=== PATIENT | female | born 1960 | race Hispanic/Latino ===

== ENCOUNTER 2018-07-12 16:15 | Inpatient (IN) | payer MEDICARE ==
[~2018-07-12] VITALS: Ht 162.6 cm; Wt 126.6 kg
[~2018-07-12 16:15] MED LIST: ALLOPURINOL100 MG PO; ASPIR 8181 MG PO; CALCIUM CARBON500 MG PO; CYMBALTA30 MG PO; DETROL LA4 MG PO; GABAPENTIN300 MG PO; HUMALOG100 UNIT/1 SC; HYDRALAZINE HCL25 MG PO; LANTUS100 UNITS/ SC; LEVOTHYROXINE88 MCG PO; SODIUM BICARBO650 MG PO; USTELL PO; VITAMIN D1000 UNIT PO; VYTORIN 10-401 EACH PO
--- NOTE | 2018-07-12 19:20 | NUR ---
PT IS IN THE UNIT WITH C/O L.LEG CELLULITIS.DIRECT ADMISSION FROM 'S OFFICE.ASSESSMENT DONE.NO RESP.DISTRESS.WALK WITH CANE.NO PAIN VOICED. H/O AMPUTATED R FOOT DIGITS.ULCER NOTED @ BOTTOM OF R.FOOT.GANGRENE PRESENT @ L.FOOT.NEW IV STATRED @ R.FARM #20G.PT IS BEING ON DIALYSIS.NOTIFIED TO MD ALONZO FARAH.RECEIVED NEW ORDERS.NOTIFIED TO ALL THE CONSULTS.CALL PLACED TO [facility] .KEEP MONITOR THE PT.
--- OUTSIDE RECORDS SUMMARY | 2018-07-12 19:31 | XMS REPORT | Summary of Care ---
Author Author HEATHER Rudolph, JUANA Organization Unknown Address Unknown Phone Unavailable Care Team Providers Care Terrazzo Installer Name Role Phone JUANA ROMERO M.D. Unavailable Unavailable BRITTNEY SANCHEZ MD Unavailable Unavailable Unavailable Unavailable Functional Status Name Dates Details Functional status health issues are not documented Status: Name Dates Details Cognitive status health issues are not documented Status: Problems Name Dates Details Limb pain (729.5, M79.609) Status: Active Acute cervical radiculopathy (723.4, M54.12) Status: Active AVF (arteriovenous fistula) (447.0, I77.0) Status: Active End-stage renal disease (585.6, N18.6) Status: Active Medications Name Dates Details Triamcinolone Acetonide 0.1 % External Cream Active Methocarbamol 750 MG Oral Tablet * Refills: 0 Active TraMADol HCl - 50 MG Oral Tablet * Refills: 0 Active Cymbalta 30 MG Oral Capsule Delayed Release Particles * Refills: 0 Active Simvastatin 10 MG Oral Tablet * Refills: 0 Active Allopurinol 100 MG Oral Tablet * Refills: 0 Active Synthroid 88 MCG Oral Tablet * Refills: 0 Active Gabapentin 400 MG TABS * Refills: 0 Active Baby Aspirin 81 MG CHEW * Refills: 0 Active Lantus 100 UNIT/ML Subcutaneous Solution * Refills: 0 Active HumaLOG 100 UNIT/ML Subcutaneous Solution * Refills: 0 Active Allergies and Adverse Reactions Name Dates Details No Known Allergies (Allergy) Status: Active Procedures Procedure Dates Details Procedures not documented Immunization Name Dates Details Immunizations not documented Social History Name Dates Details Unknown if ever smoked Vital Signs Date Test Result Details [id number] BP Systolic 104 mm[Hg] Status: Comments: Location: RUE; Position: Supine BP Diastolic 64 mm[Hg] Status: Comments: Location: RUE; Position: Supine Height 64 in Status: Weight 262 lb Status: Body Mass Index Calculated 44.97 kg/m2 Status: Body Surface Area Calculated 2.19 m2 Status: Heart Rate 64 /min Status: [id number] BP Systolic 139 mm[Hg] Status: BP Diastolic 82 mm[Hg] Status: Height 64 in Status: Weight 266 lb Status: Body Mass Index Calculated 45.66 kg/m2 Status: Body Surface Area Calculated 2.21 m2 Status: Results Date Description Value Details [id number] Tobacco Use Screening Completed DONE Plan of Care Name Dates Details Planned Observations Planned Goals not documented Instructions Name Dates Details Instructions not documented Encounters Appointment; DR HEATHER GIL Encounter Diagnosis: Problem not documented On: 09-Aug-2017 12:30 Appointment; JUANA ROMERO M.D. Encounter Diagnosis: Problem not documented On: 09-Aug-2017 13:15 Appointment; JUANA ROMERO M.D. Encounter Diagnosis: Problem not documented On: 16-Aug-2017 8:45
--- OUTSIDE RECORDS SUMMARY | 2018-07-12 19:31 | XMS REPORT | Continuity of Care Document ---
Author Author [facility] Interface Address Unknown Phone Unavailable Problems Problem Status Onset Date Classification Date Reported Comments Source Diabetes with unspecified complication, type II or unspecified type, not stated as uncontrolled Active Problem 02/01/2014 Lynsey Light Atherosclerosis of [place] arteries of the extremities with ulceration Active Problem 02/01/2014 Lynsey Light Hypercholesterolemia Active Problem 02/01/2014 Lynsey Light Lower limb amputation, above knee Active Problem 02/01/2014 Lynsey Light Angina Active Problem 02/01/2014 Lynsey Light Carotid artherosclerosis w/o infarction Active Problem 02/01/2014 Lynsey Light Abnormal EKG Active Problem 02/01/2014 Lynsey Light Mitral valve disorders Active Problem 02/01/2014 Lynsey Lihgt HTN heart dis benign, without CHF Active Problem 02/01/2014 Lnysey Light Shortness of breath Active Problem 02/01/2014 Lynsey Light Diabetes mellitus with complication Active Diagnosis 02/01/2014 Lynsey Light Diabetes with renal manifestations, type II or unspecified type, not stated as uncontrolled Active Problem 02/01/2014 Lynsey Light Medications Medication Details Route Status Patient Instructions Ordering Provider Order Date Source Clopidogrel Bisulfate 1 tablet Orally Active 75 mg Orally Once a day Kuldeep 01/24/2014 Lynsey Light Allopurinol 1 tablet Orally Active 300 MG Orally Once a day Kuldeep Light Zetia 1 tablet Orally Active 10 MG Orally Once a day Kuldeep Light Furosemide 1 tablet Orally Active 20 MG Orally Once a day Kuldeep Light Iron 1 tablet Orally Active 325 (65 Fe) MG Orally Twice a day Kuldeep Light HydrALAZINE HCl 1 tablet Orally Active 50 MG Orally Twice a day Kuldeep Light Lantus as directed NA Active 50 units once at PM Kuldeep Light Sodium Bicarbonate (Antacid) 1 tablet Orally Active 650 MG Orally BID Jaececilia Light Simvastatin 1 tablet every evening Orally Active 40 MG Orally Once a day Jaececilia Lynsey Rowejose Vitamin D as directed Orally Active 1000 MG Orally Once a day Jaececilia Light Hydrocodone-Acetaminophen 1 tablet as needed Orally Active 10- 325 MG Orally PRN Jaececilia Lopez Kuldeep Lisinopril 1 tablet Orally Active 10 MG Orally Once a day Jaececilia Lynsey Malcolmcecilia ASA 1 tab by mouth Active 80 mg by mouth daily Jaececilia Malcolmcecilia Lyrica 1 capsule Orally Active 150 MG Orally Twice a day Jaececilia Lynsey Light Calcium 1 tablet with meals Orally Active 600 MG Orally Once a day Jaececilia Light Methocarbamol 1 tablet Orally Active 500 MG Orally PRN Jaejose Light Levothyroxine Sodium 1 tablet every morning on an empty stomach Orally Active 50 MCG Orally Once a day Jaececilia Lynsey Light Humalog KwikPen as directed Subcutaneous Active 40 UNIT/ML Subcutaneous 40 units TID Jaececilia Light Ustell 1 capsule Orally Active 120 MG Orally Twice a day Jaececilia Light Allergies, Adverse Reactions, Alerts Substance Category Reaction Severity Reaction type Status Date Reported Comments Source N.K.D.A. Adverse Reaction Info Not Available Adverse Reaction Active 01/24/2014 Lynsey Light Immunizations Immunization Date Given Site Status Last Updated Comments Source Results Order Name Results Value Reference Range Date Interpretation Comments Source Vital Signs Vital Sign Value Date Comments Source Weight 285 01/24/2014 Lynsey Light Height 64 01/24/2014 Lynsey Light Temperature Oral (F) 96.2 F 01/24/2014 Lynsey Light Heart Rate 70 01/24/2014 Lynsey Light Diastolic (mm Hg) 82 01/24/2014 Lynsey Light Systolic (mm Hg) 132 01/24/2014 Lynsey Light Encounters Location Location Details Encounter Type Encounter Number Reason For Visit Attending Provider ADM Date DC Date Status Source Lynsey Light MD [place] results [id number] 01/24/2014 01/24/2014 Lynsey Light Procedures Procedure Code Date Perfomer Comments Source
--- OUTSIDE RECORDS SUMMARY | 2018-07-12 19:31 | XMS REPORT | Clinical Summary ---
Author Author [facility] Organization [facility] Address Unknown Phone Unavailable Care Team Providers Care Senior Project Architect Name Role Phone Asked, No Pcp PCP Unavailable Allergies No Known Allergies Medications End Date Status Medication Sig Dispensed Refills Start Date Active insulin lispro (HumaLOG Inject 50 0 KwikPen) 100 unit/mL Units under injection pen the skin 3 (three) times a day before meals. Active INSULIN Inject 40 0 GLARGINE,HUM.REC.ANLOG Units under (LANTUS SOLOSTAR SUBQ) the skin 2 (two) times a day with meals. Active allopurinol (ZYLOPRIM) Take 100 mg 0 100 MG tablet by mouth daily. Active aspirin (ECOTRIN) 81 MG Take 81 mg by 0 enteric coated tablet mouth daily. Active DULoxetine (CYMBALTA) 60 Take 60 mg by 0 MG capsule mouth daily. Active fenofibrate (TRICOR) 145 Take 145 mg 0 MG tablet by mouth daily. Active hydrALAZINE (APRESOLINE) Take 50 mg by 0 50 MG tablet mouth 2 (two) times a day. Active levothyroxine (SYNTHROID, Take 88 mcg 0 LEVOXYL) 88 mcg tablet by mouth every morning. Active sodium bicarbonate 648 MG Take 648 mg 0 tablet by mouth daily. Active tolterodine LA (DETROL Take 4 mg by 0 LA) 4 MG 24 hr capsule mouth daily. Active METHEN/M-BLUE/JULIO/NA Take by mouth 0 PHOS/HYOS (USTELL ORAL) 2 (two) times a day. Active IRON, FERROUS SULFATE, Take 60 mg by 0 ORAL mouth 2 (two) times a day. Active cholecalciferol, vitamin Take 1,000 0 D3, (VITAMIN D3) 1,000 Units by unit tablet mouth daily. Active CALCIUM CARB/VIT Take by 0 D3/MINERALS (CALCIUM 600 mouth. + MINERALS ORAL) Active Problems Not on file Social History Date Tobacco Use Types Packs/Day Years Used Former Smoker Smokeless Tobacco: Never Used Alcohol Use Drinks/Week oz/Week Comments Yes Sex Assigned at Date Recorded Not on file Industry Job Start Date Occupation Not on file Not on file Not on file Travel End Travel History Travel Start No recent travel history available. Last Filed Vital Signs Not on file Plan of Treatment Health Maintenance Due Date Last Done Comments CERVICAL CANCER SCREENING 1982 BREAST CANCER SCREENING 10/06/2011 COLON CANCER SCREENING 10/06/2011 SHINGLES VACCINES (1 of 10/06/2011 2) INFLUENZA VACCINE 01/19/2018 Results Not on fileafter 07/11/2017 Insurance Payer Benefit Subscriber ID Type Phone Address Plan / Group BCBS BCBS xxxxxxxxxxxx PPO CHOICE PPO/JOBY SARMIENTO PPO Advance Directives Patient has advance care planning documents on file. For more information, andrade barrientos contact: Kalpesh Norman [address] [place] [address]
--- OUTSIDE RECORDS SUMMARY | 2018-07-12 19:31 | XMS REPORT ---
Author Author Lynsey Light Organization [employer] Address Unknown Phone Unavailable Care Team Providers Care Dowel Machine Operator Name Role Phone Lynsey Light CP Unavailable Allergies, Adverse Reactions, Alerts Substance Reaction Event Type N.K.D.A. Info Not Available Non Drug Allergy Encounters Encounter Location Date results Lynsey Light MD [place] Jan 24, 2014 Problems Problem Type Condition ICD-9 Code Onset Dates Condition Status Problem Diabetes with unspecified complication, type II or unspecified type, not stated as uncontrolled 250.90 Active Problem Atherosclerosis of [place] arteries of the extremities with ulceration 440.23 Active Problem Hypercholesterolemia 272.0 Active Problem Lower limb amputation, above knee V49.76 Active Problem Angina 413.9 Active Problem Carotid artherosclerosis w/o infarction 433.10 Active Problem Abnormal EKG 794.31 Active Problem Mitral valve disorders 424.0 Active Problem HTN heart dis benign, without CHF 402.10 Active Problem Shortness of breath 786.05 Active Assessment Mitral valve disorders 424.0 Active Assessment Carotid artherosclerosis w/o infarction 433.10 Active Assessment Atherosclerosis of [place] arteries of the extremities with ulceration 440.23 Active Assessment HTN heart dis benign, without CHF 402.10 Active Assessment Angina 413.9 Active Assessment Diabetes mellitus with complication 250.90 Active Problem Diabetes with renal manifestations, type II or unspecified type, not stated as uncontrolled 250.40 Active Medications Medication Code System Code Instructions Start Date End Date Status Dosage Allopurinol [facility] [address]-04 300 MG Orally Once a day Active 1 tablet Zetia [facility] [address]-42 10 MG Orally Once a day Active 1 tablet Furosemide [facility] [address]-28 20 MG Orally Once a day Active 1 tablet Iron [facility] 27155-[address]0535 325 (65 Fe) MG Orally Twice a day Active 1 tablet HydrALAZINE HCl [facility] [address]-53 50 MG Orally Twice a day Active 1 tablet Lantus Unknown 0 50 units once at PM Active as directed Sodium Bicarbonate (Antacid) Unknown 0 650 MG Orally BID Active 1 tablet Simvastatin [facility] [address]-50 40 MG Orally Once a day Active 1 tablet every evening Vitamin D [facility] [address]-76 1000 MG Orally Once a day Active as directed Hydrocodone-Acetaminophen [facility] [address]-04 10-325 MG Orally PRN Active 1 tablet as needed Lisinopril [facility] [address]-78 10 MG Orally Once a day Active 1 tablet ASA Unknown 0 80 mg by mouth daily Active 1 tab Lyrica [facility] [address]-19 150 MG Orally Twice a day Active 1 capsule Clopidogrel Bisulfate [facility] [address]-67 75 mg Orally Once a day Jan 24, 2014 Active 1 tablet Calcium [facility] 16648-[address]006 600 MG Orally Once a day Active 1 tablet with meals Methocarbamol [facility] [address]-68 500 MG Orally PRN Active 1 tablet Levothyroxine Sodium [facility] [address]-54 50 MCG Orally Once a day Active 1 tablet every morning on an empty stomach Humalog KwikPen [facility] [address]-14 40 UNIT/ML Subcutaneous 40 units TID Active as directed Ustell [facility] [address]-95 120 MG Orally Twice a day Active 1 capsule Social History Social History Element Qualifiers Date Reported Smoking . Status Former Smoker Quit in 1999Jan 24, 2014 Alcohol Use No. Jan 24, 2014 Alcohol Screening: No. Jan 24, 2014 Marital Status: single. Jan 24, 2014 Do you drink alcohol? No. Jan 24, 2014 Occupation: . [employer] Jan 24, 2014 Vital Signs Date/Time: Jan 24, 2014 Weight 285 lbs Height 64 in Temperature 96.2 F Cardiac Monitoring Heart Rate 70 /min Blood Pressure Diastolic 82 mm Hg Blood Pressure Systolic 132 mm Hg Results Electrocardiogram (ECG) Summary Purpose [employer] Submission
--- OUTSIDE RECORDS SUMMARY | 2018-07-12 19:31 | XMS REPORT ---
Author Author [facility] Address Unknown Phone Unavailable Care Team Providers Care Marketing Development Specialist Name Role Phone Unavailable Unavailable Problems This patient has no known problems. Allergies, Adverse Reactions, Alerts This patient has no known allergies or adverse reactions. Medications This patient has no known medications.
[2018-07-12 19:45] VITALS: BP 168/87
[2018-07-12 20:00] VITALS: BP 168/87
[2018-07-12 20:30] VITALS: BP 168/87
[2018-07-12] MEDS ORDERED: DEXTROSE 50% SYRINGE 50 ML IV PRN (21:15)
[2018-07-12] MEDS ORDERED: CEFEPIME HCL 1 GM VIAL IV SCH (21:15)
[2018-07-12] MEDS ORDERED: ACETAMINOPHEN 325 MG TAB PO PRN (21:15)
[2018-07-12] MEDS: CEFEPIME 1GM/NS 0.9% 50 ML 50 ML IV SCH (22:00)
[2018-07-12] MEDS ORDERED: SODIUM CHLORIDE 0.9% 250ML 250 ML ONE (22:03)
[2018-07-13] VITALS (7 sets, daily range): BP systolic 95–132; BP diastolic 52–67
--- NOTE | 2018-07-13 03:00 | NUR ---
SLEEPING IN THE BED.STABLE CONDITION.
[2018-07-13] MEDS ORDERED: SIMVASTATIN10 MG PO ×2 (04:08→04:47)
[2018-07-13 04:56] LABS: BASOPHILS % 0.5 % (0.0-1.0); EOSINOPHILS # (AUTO) 0.2 (0.0-0.4); EOSINOPHILS % 2.7 % (0.0-6.0); LYMPHOCYTES # (AUTO) 2.3 (1.0-3.2); MEAN CORPUSCULAR HEMOGLOBIN 30.6 pg (28-32); MEAN CORPUSCULAR HGB CONC 30.6 g/dL (31-35); MEAN CORPUSCULAR VOLUME 100.3 fL (81-99); MONOCYTES # (AUTO) 0.8 (0.2-0.8); MONOCYTES % 9.3 % (4.4-11.3); NEUTROPHILS # (AUTO) 4.8 (2.1-6.9); NEUTROPHILS % 58.9 % (38.7-80.0); PLATELET COUNT 356 x10e3/uL (140-360); RED BLOOD COUNT 3.59 x10e6/uL (3.6-5.1); RED CELL DISTRIBUTION WIDTH 14.1 % (11.7-14.4)
[2018-07-13] MEDS: LEVOTHYROXINE SODIUM 88 MCG TAB PO SCH (06:06)
[2018-07-13] MEDS: HYDROCODONE/APAP 5MG-325MG TAB PO PRN ×2 (06:10→18:38)
--- NOTE | 2018-07-13 06:50 | NUR ---
REPORT GIVEN TO THE ONCOMING RN.WALKING ROUNDS DONE.STABLE CONDITION.
[2018-07-13] MEDS: INSULIN LISPRO 100 UNIT/1 ML 3ML VIAL SQ SCH ×4 (07:30→21:00)
[2018-07-13] MEDS: OYST-CAL-D 500MG TABLET PO SCH (08:23)
[2018-07-13] MEDS: GABAPENTIN 300 MG CAP PO SCH ×3 (08:23→21:05)
[2018-07-13] MEDS: ALLOPURINOL 100 MG TAB PO SCH (08:23)
[2018-07-13] MEDS: DULOXETINE HCL 30 MG DELAYED RELEASE PO SCH (08:23)
--- NOTE | 2018-07-13 08:36 | NUR ---
patient resting in bed, not in any distress, redness on left foot, denies any pain this time, Dr Elías Anna and Dr Hairston had rounds
[2018-07-13] MEDS: CEFEPIME 1GM/NS 0.9% 50 ML 50 ML IV SCH ×2 (08:56→21:05)
--- NOTE | 2018-07-13 09:04 | Consultation ---
DATE OF CONSULTATION: July 13, 2018 REASON FOR CONSULTATION: Ischemic left foot. HISTORY OF PRESENT ILLNESS: Mrs. Heard is a very pleasant female well known to my service, both from an outpatient and inpatient management of multiple diabetic foot complications. She has a history of nonhealing ulcer to the plantar lateral aspect of the right foot. Seen and evaluated yesterday, but also was noticed that she had ischemic changes, mottling and cyanotic changes associated to the left foot. This raised a significant amount of concern, and thus I sent the patient direct admit for inpatient evaluation. Upon admission, blood sugar was 91. Hemoglobin A1c was 6. PAST MEDICAL HISTORY: Diabetes, morbid obesity, end-stage renal disease, on hemodialysis, diabetic foot complications, diabetic nephropathy. SURGICAL HISTORY: Transmetatarsal amputation of right foot, AV fistula for hemodialysis. ALLERGIES: NO KNOWN DRUG ALLERGIES. MEDICATIONS: Please see MAR for current medication list. REVIEW OF SYSTEMS: Otherwise negative. PHYSICAL EXAMINATION GENERAL: A and O times 3. NAD. HEENT: Normocephalic and atraumatic. Anicteric. ABDOMEN: Soft, nontender and nondistended. RESPIRATORY: Symmetrical. PSYCHIATRIC: Normal affect. EXTREMITIES: In deed still cyanotic changes associated to the left foot with multiple what appears to be ischemic Mal perforans lesions. There is a nonhealing ulceration to the plantar lateral aspect of the right foot as well, TMA stump. ASSESSMENT 1. Diabetic patient with what appears to be acute ischemic changes to the left foot. 2. Cellulitis, left foot. 3. Nonhealing ulceration, plantar lateral aspect of the right foot. PLAN: Local wound care. Offloading, vascular workup. Further recommendations to follow pending clinical course and particularly arterial Dopplers. Job#: [id number] PA
[2018-07-13] MEDS ORDERED: SODIUM CHLORIDE 0.9% 1000ML 2,000 ML IV PRN (11:00)
--- NOTE | 2018-07-13 11:33 | Consultation ---
DATE OF CONSULTATION: July 13, 2018 HISTORY OF PRESENT ILLNESS: A 57-year-old female known to our nephrology service, dialyzes at [place] with renal specialists, Dr. Navarro, Dr. Villagran. Admitted by Dr. Anna for cellulitis and ulceration of right foot. She has had a longstanding history of diabetes, increased BMI, hypertension, secondary hyperparathyroidism, anemia, peripheral neuropathy, retinopathy, hypothyroidism, hyperlipidemia, history of gout. On dialysis. Currently lying supine. Scheduled for dialysis today. Denies shortness of breath, nausea and vomiting. CURRENT MEDICATIONS 1. Cefepime 1 g q.12. 2. She is on Tylenol p.r.n. 3. Allopurinol 100 mg daily. 4. Os-Efren 650 mg daily. 5. She is on Cymbalta 60 mg p.o. daily. 6. Neurontin 300 mg p.o. t.i.d. 7. Insulin. 8. Hydrocodone p.r.n. 9. Levothyroxine 88 mcg daily. 10. Simvastatin 10 mg p.o. at bedtime. No chemistries done today. White count is 8.5 hemoglobin is 11. SOCIAL HISTORY: Does not smoke or drink. ALLERGIES: NO APPARENT DRUG ALLERGIES. FAMILY HISTORY: Significant for hypertension and diabetes. PHYSICAL EXAMINATION GENERAL: Awake, alert, lying supine, no apparent distress. VITALS: Blood pressure 168/87, pulse rate 83, afebrile, respiratory rate 17 with oxygen saturation 96% room air. HEAD AND NECK: Corneas clear. Mucosa moist. LUNGS: Bibasilar rales. HEART: S1, S2 audible. ABDOMEN: Otherwise soft, nontender. LOWER EXTREMITY EXAMINATION: Shows evidence of some dusky redness noted dorsum of the left foot with a little scab and eschar about the size of a quarter noted on the dorsum of the foot. Defer foot management to Dr. Anna. Antibiotics per Dr. Hairston. I will manage kidney failure. I will start phosphorus binders, renal diet, protein supplementation. Monitor patient's kidney function, volume status, hypertension with you. Job#: [id number] KEIRA
[2018-07-13 12:14] LABS: ANION GAP 15.7 mmol/L (8-16); CALCIUM 8.8 mg/dL (8.4-10.2); CREATININE, SERUM 6.7 mg/dL (0.57-1.11); POTASSIUM 3.7 mmol/L (3.5-5.1)
[2018-07-13] MEDS: SEVELAMER CARBONATE 800 MG TAB PO SCH ×2 (13:05→17:05)
--- NOTE | 2018-07-13 14:27 | NUR ---
CM SPOKE TO PATIENT AT BEDSIDE REGARDING IMM LETTER. IMM LETTER GIVEN WITH EXPLANATION. ORIGINAL SIGNED AND PLACED IN CHART; COPY OF ORIGINAL DOCUMENT GIVEN TO PATIENT AT BEDSIDE AND PLACED IN CARE TRANSITION FOLDER. CM CONTACT INFORMATION GIVEN TO PATIENT FOR ANY NEEDS OR CONCERNS. PATIENT WITH NO FURTHER QUESTIONS
--- NOTE | 2018-07-13 14:35 | NUR ---
patient resting in bed, AAOx3, Dialysis nurse at bed side doing Dialysis on patient
--- NOTE | 2018-07-13 16:20 | NUR ---
WOUND CARE CONSULT - INITIAL EVALUATION Patient admitted from Home to unit for LLE Cellulitis and Ischemia of left Foot. HX: Right foot TMA, HD, DM, PVD, Obesity. - Well known patient of Dr.Cuza Mckinley and admitted for IV ABX and Vascular Workup & Wound Care. LABS: WBC8.15 HGB11 HCT36 NEUT%28 HbA1c6 - Arterial Doppler BLE- Pending - Wound Care Consulted PATIENT VISIT: - Patient in bed at time of first visit attempt @ 1230 and was undergoing HD. - Revisited same day - patient in bed AAOx4 and in good spirits. - States to ambulate at home with cane without assistance. - BS 19 and is on Visco Mattress. - Verbalizes to have non healing right foot Diabetic ulcer >3 months. - Verbalizes admitted for worsening left foot. - Right foot annular ulcer with pale pink/ dusky appearance. Tender upon touch. States treatment at home with Regranex powder and does not seem to be working very well. Patient did not bring medication with her from home. States wound is draining some and dressing tends to stick to her wound during dressing changes. Periwound presents calloused/ thickened. - Left Foot - Ischemia from mid foot to toes not fully demarcated but visible line starting to form. Eschar to Left Dorsal foot 1.5x1.3 cm, Left Foot 2nd Toe 1.5x1cm, Left Foot 5th Toe 2x0.5cm Dry Eschar. - Patient to continue care under Dr. Shoshana Mckinley. DPM IMPRESSION; 1. Right Foot - Non- Healing DFU - Grade 1 2. Left Foot - DFU Grade 4 with PAD. RECOMMENDATION: 1. Right Foot - Non-Healing DFU - Maxsorb Ag+ and Cover with 4x4 gauze and secure with Kerlix Daily 2. Left Foot- Conservative [place] eschar areas with Betadine and Leave Open To Air. 3. Continue Alternating Air Mattress 4. Encourage Patient to Turn and Reposition every 2 hours. 5. Offload Heels with Pillows While in Bed. Thank you for consulting with Wound Care. Addendum: 07/13/18 at 1641 by Mendoza Bell RN Amended: Links added.
[2018-07-13] MEDS: VANCOMYCIN 1GM/NS 250 ML 250 ML IV SCH (18:27)
--- NOTE | 2018-07-13 19:20 | NUR ---
PATIENT RECEIVED. PATIENT IS RESTING IN BED, AAOX3. RESP EVEN AND UNLABORED. NO ACUTE DISTRESS NOTED. DRESSING TO RIGHT AND LEFT FOOT NOTED, DRY AND INTACT. PATIENT DENIES OF ANY PAIN. CALL LIGHT WITHIN REACH. INSTRUCT TO CALL FOR ASSISTANCE. BED LOW/LOCKED. CONTINUE TO MONITOR CLOSELY
[2018-07-13] MEDS: SIMVASTATIN 20 MG TAB PO SCH (21:05)
[2018-07-14] VITALS (7 sets, daily range): BP systolic 96–127; BP diastolic 54–60
--- NOTE | 2018-07-14 00:28 | Consultation ---
DATE OF CONSULTATION: REASON FOR CONSULTATION: Infection of her left foot. HISTORY: This patient who is a 57-year-old female with history of diabetes mellitus, history of neuropathy, history of obesity, history of end-stage renal disease. The patient brought new shoes a couple of weeks ago, started to have redness and swelling on her left foot which was getting progressively worse. The patient does have history of right transmetatarsal amputation. The patient who also has history of gout and neuropathy and hypothyroidism and hypercholesterolemia. She is coming with redness and swelling of her leg as mentioned above. The patient was admitted. Infectious disease was asked to see the patient. PAST MEDICAL HISTORY: As above. Diabetes mellitus; neuropathy; obesity; end-stage renal disease, on hemodialysis; hypertension; hypercholesterolemia. PAST SURGICAL HISTORY: TMA, IV access for dialysis. ALLERGIES: NKA. SOCIAL HISTORY: There is no smoking, drug abuse, or alcohol abuse. FAMILY HISTORY: Otherwise unremarkable. MEDICATIONS: She is on Neurontin, Renvela, cefepime, Zyloprim, and levothyroxine. FAMILY HISTORY: Diabetes mellitus and hypertension. REVIEW OF SYSTEMS: HEENT: Negative. PULMONARY: Negative. CARDIAC: Negative. : Negative. SKIN: There is no rash. JOINTS: No swelling or erythema. PHYSICAL EXAMINATION: GENERAL: She is currently alert and oriented, does not seem to be in acute distress. VITAL SIGNS: Stable, currently afebrile. HEENT: She does not appear icteric. NECK: Supple. No JVD, no lymphadenopathy, no thyromegaly. ABDOMEN: Obese. EXTREMITIES: On the left foot, there is erythema, there is edema, and there is induration. IMPRESSION: Infection of the left foot, concern about abscess, concern about osteomyelitis, concern about peripheral vascular disease with ischemic changes. I would recommend cardiac evaluation, vancomycin and cefepime, obtain MRI. The patient is at risk for loss of her foot. Will follow. Job#: [id number]
--- NOTE | 2018-07-14 07:35 | NUR ---
patient resting in bed, Alert with no distress, denies any pain this time, call light in reach, keep monitoring
[2018-07-14] MEDS: OYST-CAL-D 500MG TABLET PO SCH (07:53)
[2018-07-14] MEDS: SEVELAMER CARBONATE 800 MG TAB PO SCH ×3 (07:53→16:56)
[2018-07-14] MEDS: DULOXETINE HCL 30 MG DELAYED RELEASE PO SCH (07:53)
[2018-07-14] MEDS: INSULIN LISPRO 100 UNIT/1 ML 3ML VIAL SQ SCH ×4 (07:53→21:44)
[2018-07-14] MEDS: LEVOTHYROXINE SODIUM 88 MCG TAB PO SCH (07:53)
[2018-07-14] MEDS: ALLOPURINOL 100 MG TAB PO SCH (07:53)
[2018-07-14] MEDS: GABAPENTIN 300 MG CAP PO SCH ×3 (07:53→21:42)
--- NOTE | 2018-07-14 09:10 | Progress Note ---
DATE: July 14, 2018 Ms. Heard is a 57-year-old female with history of diabetes with end-stage renal disease on hemodialysis, hypertension, hyperlipidemia, partial right foot amputation. Sent to the hospital because of left lower extremity erythema and left foot ulcer as well as some erythema in the whole lower extremity. PHYSICAL EXAMINATION GENERAL: She is awake and alert. VITALS: Temperature is 96.7, blood pressure 117/59. HEART: Regular rate. LUNGS: Clear to auscultation. ABDOMEN: Distended and soft. EXTREMITIES: Right foot: She has a partial amputation on her right foot. Left foot: She has a lesion on the top of the foot. She has an ulcer on the 2nd toe with some ischemic changes and concern for osteomyelitis. LABS: On the blood work, potassium is 3.7, creatinine 6.7, glucose 101. White count 8.16, hemoglobin 11, hematocrit 36. ASSESSMENT AND PLAN 1. Left lower extremity cellulitis. 2. Left foot ulcer concerning for osteomyelitis in a patient with patient with diabetes type 2 with foot ulcer. 3. Diabetes type 2 with end-stage renal disease. 4. End-stage renal disease. Dependence on hemodialysis. 5. Right foot partial amputation. 6. Peripheral arterial disease. 7. Hypertension. 8. Hyperlipidemia. The plan at the present time with this patient is to continue wound care. We are waiting for the results of the arterial Doppler. She is on IV cefepime and vancomycin. Continue dialysis 3 times a week, ADA diet and sliding-scale with insulin. All this was discussed with the patient, and all questions were answered to satisfaction. Job#: [id number]
[2018-07-14] MEDS: CEFEPIME 1GM/NS 0.9% 50 ML 50 ML IV SCH ×2 (09:43→21:42)
--- NOTE | 2018-07-14 14:18 | Diagnostic Imaging Report ---
TECHNIQUE: Magnetic resonance imaging of the LEFT foot (forefoot) was performed WITHOUT injected contrast. Inhomogeneous fat saturation that partially limits the exam. HISTORY: Ischemic, ulcer, cellulitis COMPARISON: None available. DISCUSSION: Bone: No focal or infiltrative bone marrow replacing abnormality. Fatty marrow signal is preserved within the visualized bones. No acute fracture or osteonecrosis. Joints: No dislocation. No effusion. Mild to moderate scattered degenerative changes, most notably the visualized midfoot and tarsometatarsal joints. Soft Tissues: Mild nonspecific dorsal soft tissue edema. No drainable fluid collection. IMPRESSION: 1. No osteomyelitis. 2. No soft tissue abscess. Signed by: Dr. Shade Emerson D.O., M.M.M. on 07/14/2018 2:15 PM
--- NOTE | 2018-07-14 16:04 | NUR ---
dressing done on both foot, patient tolerated well
--- NOTE | 2018-07-14 16:16 | NUR ---
CASE MANAGEMENT INITIAL ASSESSMENT Program Manufacturing Leader to bedside to discuss plan of care with patient/family. CM/SW role and care transitions discussed. Anticipated discharge plan discussed along with duration of care. CM discussed patients right to make decisions in care. CM/SW work hours given. Patient lives: PATIENT LIVES IN [address] PATERSON HOME IN [place], [place] WITH [facility] [phone] Admit/Transfer: POA/Emergency contact: PAULA DESAI: [phone] Current/Previous Home Health: DOES NOT REMEMBER PCP/Follow-up Care: DR. ROSADO Current/Previous DME: NONE Other Services: NONE Employment Status: RETIRED Areas of Concerns: MOBILITY AND WOUND CARE Referral Needs: HOME HEALTH Education Needs: WOUND CARE IMM/VICTOR given and signed (if applicable): NOT AT THIS TIME Goal for discharge: DISCHARGE HOME WITH WOUND CARE FROM HOME HEALTH SERVICES CM left business card at the bedside with contact information. Name and number was also written on the patients whiteboard. Patient verbalized understanding of discussion. CM will follow-up with ongoing discharge and transition of care needs.
--- NOTE | 2018-07-14 16:16 | NUR ---
Nutrition Screen Note RD Recommendation for Physician: -Continue renal diabetic diet as ordered Plan of Care: RD following, monitoring for tolerance and adequacy Nutrition reason for involvement: Diagnosis ESRD Primary Diagnose(s): 1. Left lower extremity cellulitis. 2. Left foot ulcer concerning for osteomyelitis in a patient with patient with diabetes type 2 with foot ulcer. PMH: Diabetes, morbid obesity, end-stage renal disease on hemodialysis, diabetic foot complications, diabetic nephropathy. Ht: 64in Wt: 269.06lb BMI: 46.2kg/m2 IBW: 120lb RD Assessment: (07/14) Chart reviewed. Labs and meds reviewed. 57yo F, who is admitted for left foot cellulitis. HbA1c was at 6%. 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 Pt denied chewing/swallowing problems and nausea/vomiting. RN recorded 75-100% meal intake since admission. LBM 07/14. Will cont to monitor. Please consult as needed. Current Diet: renal diabetic diet Malnutrition Evaluation (07/14/2018) The patient does not meet criteria for a specified degree of malnutrition at this time. Will re-evaluate at follow-up as appropriate. Diet Education Needs Assessment: Diet education not indicated. followed by RD at [facility] Level: low Signed: Stefania Baez, , RD, LD
[2018-07-14] MEDS: COLLAGENASE OINTMENT 30 GM TUBE TP SCH (16:49)
--- NOTE | 2018-07-14 19:20 | NUR ---
PATIENT RECEIVED. PATIENT IS RESTING IN BED, AAOX3. RESP EVEN AND UNLABORED. NO ACUTE DISTRESS NOTED. DRESSING TO RIGHT FOOT NOTED, DRY AND INTACT. PATIENT DENIES OF ANY PAIN. CALL LIGHT WITHIN REACH. INSTRUCT TO CALL FOR ASSISTANCE. BED LOW/LOCKED. CONTINUE TO MONITOR CLOSELY
[2018-07-14] MEDS: SIMVASTATIN 20 MG TAB PO SCH (21:42)
[2018-07-15] VITALS (9 sets, daily range): BP systolic 98–138; BP diastolic 51–74
[2018-07-15] MEDS: INSULIN LISPRO 100 UNIT/1 ML 3ML VIAL SQ SCH ×4 (07:30→21:00)
[2018-07-15] MEDS: LEVOTHYROXINE SODIUM 88 MCG TAB PO SCH (08:43)
[2018-07-15] MEDS: CEFEPIME 1GM/NS 0.9% 50 ML 50 ML IV SCH ×2 (08:43→22:02)
[2018-07-15] MEDS: OYST-CAL-D 500MG TABLET PO SCH (08:43)
[2018-07-15] MEDS: GABAPENTIN 300 MG CAP PO SCH ×3 (08:43→21:59)
[2018-07-15] MEDS: SEVELAMER CARBONATE 800 MG TAB PO SCH ×3 (08:43→17:09)
[2018-07-15] MEDS: ALLOPURINOL 100 MG TAB PO SCH (08:43)
[2018-07-15] MEDS: COLLAGENASE OINTMENT 30 GM TUBE TP SCH (08:43)
[2018-07-15] MEDS: DULOXETINE HCL 30 MG DELAYED RELEASE PO SCH (08:43)
--- NOTE | 2018-07-15 09:00 | Progress Note ---
DATE: July 15, 2018 Ms. Heard is a 57-year-old female with history of diabetes, end-stage renal disease on hemodialysis, hypertension, hyperlipidemia, partial amputation of the right foot. She was sent to the hospital by the conveyor monitor because she had an ulcer in her left lower extremity and cellulitis. She was started on IV antibiotics. Arterial Doppler showed severe peripheral vascular disease of the left lower extremity. PHYSICAL EXAMINATION GENERAL: Today, she is awake and alert. VITALS: Temperature is 97.9. Blood pressure is 98/55. HEART: Regular rate. LUNGS: Clear to auscultation. ABDOMEN: Distended and soft. EXTREMITIES: The left lower extremity has an ulcer on the top of the left foot. It has a little ulcer on the 2nd toe. The erythema is going down. LABS: On the blood work, potassium is 3.70, glucose 101. White count 8.15, hemoglobin 11, hematocrit 36. Arterial Doppler shows severe peripheral vascular disease in the left lower extremity from the iliac artery down. MRI of the foot was negative for osteomyelitis. ASSESSMENT AND PLAN 1. Left lower extremity cellulitis. 2. Left foot ulcer with negative MRI, so no osteomyelitis. 3. Diabetes, type 2, with end-stage renal disease. 4. End-stage renal disease. 5. Dependence on hemodialysis. 6. Right foot partial amputation. 7. Severe peripheral vascular disease of the left lower extremity. 8. Hypertension. 9. Hyperlipidemia. The plan at the present time is to continue wound care, IV antibiotics and ADA diet. Scheduled insulin. Dialysis 3 times a week. We are going to consult Dr. Light for possible angiogram of the lower extremity. All of this was discussed with the patient and nurse, and all questions were answered to satisfaction. Job#: [id number]
[2018-07-15 09:53] LABS: BASOPHILS % 0.6 % (0.0-1.0); EOSINOPHILS # (AUTO) 0.2 (0.0-0.4); EOSINOPHILS % 3.4 % (0.0-6.0); HEMATOCRIT 33.3 % (34.2-44.1); HEMOGLOBIN 10.7 g/dL (12.0-16.0); LYMPHOCYTES # (AUTO) 1.9 (1.0-3.2); LYMPHOCYTES % 29.1 % (18.0-39.1); MEAN CORPUSCULAR HEMOGLOBIN 31.8 pg (28-32); MEAN CORPUSCULAR HGB CONC 32.1 g/dL (31-35); MEAN CORPUSCULAR VOLUME 99.1 fL (81-99); MONOCYTES # (AUTO) 0.6 (0.2-0.8); MONOCYTES % 8.9 % (4.4-11.3); NEUTROPHILS # (AUTO) 3.7 (2.1-6.9); NEUTROPHILS % 57.5 % (38.7-80.0); PLATELET COUNT 300 x10e3/uL (140-360); RED BLOOD COUNT 3.36 x10e6/uL (3.6-5.1); RED CELL DISTRIBUTION WIDTH 14.3 % (11.7-14.4)
[2018-07-15 10:20] LABS: ANION GAP 16.2 mmol/L (8-16); CALCIUM 8.9 mg/dL (8.4-10.2); CREATININE, SERUM 6.61 mg/dL (0.57-1.11); POTASSIUM 4.2 mmol/L (3.5-5.1)
[2018-07-15] MEDS: CLOPIDOGREL BISULFATE 75 MG TAB PO SCH (12:22)
[2018-07-15] MEDS ORDERED: SODIUM CHLORIDE 0.9% 100 ML 100 ML ONE (13:30)
[2018-07-15] MEDS ORDERED: IOPAMIDOL 370 MG/ML 200 ML INFUS..BTL INJ ONE (13:30)
--- NOTE | 2018-07-15 13:41 | Consultation ---
DATE OF CONSULTATION: July 15, 2018 CARDIOLOGY CONSULTATION REASON FOR CONSULTATION: Ischemic left foot. HISTORY OF PRESENT ILLNESS: This is a 57-year-old woman with a history of CAD, end-stage renal disease on HD therapy, hypertension, diabetes with severe end-organ damage, severe PAD status post right foot TMA, hypercholesterolemia, history of carotid disease and obesity. The patient presents to [facility] ER after seeing her net software engineer in which was noted with 3-plus-week history of left foot redness, warmth and necrotic changes. Therefore, came to [facility] for further evaluation. Cardiology was consulted. The patient is seen in room on dialysis, reports the left foot ulcers 2nd toe and 5th digit started about 3-plus weeks ago. Went to see her net software engineer, who told her she needed to come to the hospital for further evaluation. Also of note, patient reports right TMA ulcer on the lateral aspect for over 3 months, has been seeing Podiatry and has been receiving regular debridements. Patient reports feels ulcer has increased in size since initiating therapy. Patient currently in no acute distress, reports no fevers or chills. Denies any chest pain, shortness of breath or any anginal symptoms. PAST MEDICAL HISTORY 1. CAD status post left heart catheterization July 2017 showing about a 60% proximal LAD disease, 40% left circ, EF about 35%. Also at the same time, the patient had a carotid angiogram which showed about 50% to 60% right ICA and about 50% left ICA. 2. Hypertension. 3. Severe peripheral vascular disease. 4. End-stage renal disease. 5. Diabetes. 6. Peripheral neuropathy. 7. Hypothyroidism. 8. Anemia. 9. Sleep apnea. SURGICAL HISTORY: Includes 1. Right eye laser surgery in 2018. 2. Right TMA about 2018. FAMILY HISTORY: Mother , apparently had history of CHF. Father , apparently had a history of stomach cancer. SOCIAL HISTORY: She is single. She is a former smoker, quit in 1999. Denies any alcohol use. 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 ALLERGIES: NO KNOWN ALLERGIES. HOME MEDICATIONS: Include 1. Plavix 75 mg once a day. 2. Simvastatin 20 mg a day. 3. Methocarbamol 750 mg once p.r.n. 4. Allopurinol 300 mg daily. 5. Detrol LA 4 mg daily. 6. Lantus 20 units b.i.d. 7. Gabapentin 300 mg 3 times a day. 8. Humalog apparently 20 to 26 units t.i.d. 9. Levothyroxine 88 mcg once a day. REVIEW OF SYSTEMS GENERAL: Denies any weight changes, any fatigue, weakness, fevers, chills, night sweats, skin rashes. Ulcer right TMA stump about a quarter size with yellowish drainage. Also ulcer on the anterior aspect of her left foot with scar tissue. Also 2nd digit in her left foot and 5th toe with necrotic changes. HEENT: Denies any nausea, vomiting, vision changes. Positive for blurred vision. Denies any earaches, any vertigo, any epistaxis, any hoarseness, sore throat. CARDIAC: Denies any chest pain. Positive for dyspnea on exertion. Denies any palpitations, orthopnea, PND. RESPIRATORY: Denies any shortness of breath, any hemoptysis. GI: Reports good appetite. Denies any nausea, vomiting, any dysphagia, any hematemesis, any melena. VASCULAR: Denies any lower extremity edema. Positive for claudication. MUSCULOSKELETAL: Generalized muscle weakness, generalized joint pain. NEUROLOGIC: Positive for lower extremity numbness, tingling. Denies any paralysis, any blackouts, seizures. HEMATOLOGY: Denies any easy bruising. Positive for anemia history. ENDOCRINE: Denies any polyuria, polydipsia, polyphagia. PHYSICAL EXAMINATION VITAL SIGNS: Height 64 inches, weight 276 pounds, BMI 47. Current vital signs: Temperature 98.9, pulse 78, respiratory rate 20, blood pressure 130/62, pulse ox 99% on room air. GENERAL: Appears stated age. Reliable informant. No acute distress currently, on HD therapy. SKIN: Has a left AV fistula. Also has a right foot TMA with a quarter-sized lateral lesion with yellowish drainage. Left foot anterior aspect with necrotic changes. Also 2nd and 5th digits with redness and some necrotic changes. HEENT: Normocephalic. Pupils equal and reactive. Extraocular motor intact. Trachea midline. Oral mucosa pink. No thyromegaly noted. No JVD. Slight carotid bruit heard bilaterally. LUNGS: Bilateral breath sounds clear to auscultation. No wheezing, no rales. ABDOMEN: Soft, nontender, nondistended. No organomegaly noted. HEART: Regular rate and rhythm. No murmurs, no clicks. MUSCULOSKELETAL: 4/5 muscle strength throughout. Has a left AV fistula with a positive bruit and thrill. VASCULAR: +2 bilateral radial pulses. Unable to palpate lower extremity DP and PT pulses. Faint femoral pulse bilaterally. NEUROLOGIC: Cranial nerves 2-12 seem intact. LABS: White count 6, hemoglobin 10, hematocrit 33, platelets 300. CHEMISTRY: Sodium 135, potassium 3.7, chloride 96, bicarb 27, BUN 40, creatinine 6.7. FOOT MAGNETIC RESONANCE IMAGING: No osteo noted. Left arterial duplex showing severe PVD starting from the iliac artery level. ASSESSMENT 1. Severe peripheral vascular disease with right and left foot ulcers and gangrenous changes. 2. Cellulitis. 3. End-stage renal disease. 4. Hypertension. 5. Diabetes. 6. Hyperlipidemia. 7. Coronary artery disease by left heart catheterization July 2017. PLAN-GILMORE 1. Patient presents with several months of bilateral lower extremity ulcerations and now presents with some necrotic changes in the left foot. Options discussed with the patient at length. 2. Will go ahead and do a CTA of the lower extremities to evaluate the extensivity of disease. 3. Patient is at high risk for any peripheral angiogram and intervention. Patient is made aware of this and accepts risk. 4. Continue aspirin, Plavix, statin therapy. 5. Will continue to monitor and further recommendations after CTA is done. Thank you very much for this consult. We will follow the patient's progression. Dictated by: Aiden Moura NP Patient seen and examined Very complex anatomy, multiple procedures in past, bad protoplasm, morbid obesity, multiple comorbid medical conditions Discussed at length with patient needs invasive procedures, high risk for complications with mortality, morbidity Offered procedures Ok home , will see O.P. and arrange her complex procedure Will address first left lower extremity then the chronic ulcer on right foot stump Job#: [id number] SAY MCKEON
--- NOTE | 2018-07-15 16:03 | Diagnostic Imaging Report ---
EXAM: CTA ABDOMEN AND PELVIS AND LOWER EXTREMITY, WITH CONTRAST. INDICATION: ^PVD w/ necrotic bilateral foot ulcers ^[id number] ^1350 ^Y COMPARISON: None. Technique: Multidetector [address] scanning with 2 mm cuts of the abdomen, pelvis and bilateral thighs after administration of 100 cc IV of Omnipaque 350. Coronal and sagittal multiplanar, MIP thin and thick cuts, and 3-D volume-rendering reformations were obtained. In addition, delay images of the lower extremities below the knee were obtained. IV CONTRAST: 100 mL of Isovue-370 ORAL CONTRAST: None COMPLICATIONS: None RADIATION DOSE: Total DLP: 1456 mGy*cm Estimated effective dose: (DLP x 0.015 x size factor) mSv CTDIvol has been reviewed. It is below the limits set by the Radiation Protocol Committee (RPC). FINDINGS: Potential study limitations: None. VASCULAR WITH ADVANCED 3-D OFF-LINE POSTPROCESSING: The abdominal aorta is normal in course, caliber, and contour. Mild nonobstructing atherosclerotic calcification throughout the abdominal aorta. There is no acute aortic pathology. PELVIS VESSELS: Bilateral common, external, and internal iliac arteries are patent with associated mild atherosclerotic calcifications without significant stenosis. The abdominal aorta measures: 2.2 cm at the supramesenteric segment 2.0 cm at the mesenteric segment 1.8 cm at the renal segment 1.9 cm at the mid infrarenal segment 1.9 cm at the aortic bifurcation 1.2 cm at the right common iliac artery 0.8 cm at the right external iliac artery 0.8 cm at the right common femoral artery 1.0 cm at the left common iliac artery 0.8 cm at the left external iliac artery 0.8 cm at the left common femoral artery The celiac axis, SMA, and AIDE are patent. There are small single renal arteries bilaterally, both of which appear patent. RIGHT LOWER EXTREMITY: Right common femoral and profundus femoral arteries are widely patent with associated mild nonobstructing atherosclerotic calcifications. Diffuse atherosclerotic changes throughout the superficial femoral artery resulting in multifocal sites of severe stenosis (greater than 70%) in the distal 12 cm segment. Diffuse atherosclerotic calcifications throughout the popliteal artery resulting in severe stenosis (greater than 70%). Heavy calcification throughout the tibioperoneal trunk, anterior and posterior tibial arteries and peroneal arteries limiting evaluation of the degree of stenosis but is at least moderate. Distal segments are patent and supply the foot. LEFT LOWER EXTREMITY: Left common femoral and profundus femoral arteries are widely patent with associated mild nonobstructing atherosclerotic calcifications. Moderate circumferential atherosclerotic calcification throughout the proximal and mid superficial femoral artery. Multifocal severe stenoses through the distal superficial femoral artery due to multiple heavily calcified plaques. Diffuse severe atherosclerotic disease throughout the popliteal artery, tibioperoneal trunk, anterior and posterior tibial arteries and peroneal artery. Very small vessels supply the foot. NON-VASCULAR FINDINGS: LOWER CHEST: Severe calcifications of the mitral annulus. ABDOMEN: The liver, spleen, and pancreas appear normal. Cholecystectomy. The adrenal glands appear normal. Both kidneys are normal in size, shape, and density. There is no abnormal mass or hydronephrosis. PELVIS: There is no significant retroperitoneal adenopathy. No free fluid or free air within the abdomen or pelvis. Few scattered diverticulosis without diverticulitis. Normal appendix. The urinary bladder appears normal. BONES: Moderate multilevel degenerative changes of the lumbar spine. IMPRESSION: 1. Normal size of the abdominal aorta with associated mild nonobstructing atherosclerotic calcifications. 2. Patent pelvic arteries with associated mild nonobstructing at the carotid calcifications. 3. Severe atherosclerotic disease involving the bilateral distal superficial femoral arteries, popliteal arteries, and distal runoff. Signed by: Dr. Valery Peterson M.D. on 07/15/2018 3:59 PM
[2018-07-15] MEDS ORDERED: CLOPIDOGREL BISULFATE 75 MG TAB PO ONE (16:45)
[2018-07-15] MEDS: VANCOMYCIN 1GM/NS 250 ML 250 ML IV SCH (19:24)
[2018-07-15] MEDS: SIMVASTATIN 20 MG TAB PO SCH (21:59)
[2018-07-16] VITALS (8 sets, daily range): BP systolic 98–129; BP diastolic 51–62
[2018-07-16 04:43] LABS: BASOPHILS # (AUTO) 0.1 (0.0-0.1); BASOPHILS % 0.7 % (0.0-1.0); EOSINOPHILS # (AUTO) 0.3 (0.0-0.4); EOSINOPHILS % 3.9 % (0.0-6.0); HEMATOCRIT 34.9 % (34.2-44.1); HEMOGLOBIN 11.5 g/dL (12.0-16.0); LYMPHOCYTES % 28.2 % (18.0-39.1); MEAN CORPUSCULAR HEMOGLOBIN 32.6 pg (28-32); MEAN CORPUSCULAR VOLUME 98.9 fL (81-99); MONOCYTES # (AUTO) 0.7 (0.2-0.8); MONOCYTES % 9.3 % (4.4-11.3); NEUTROPHILS # (AUTO) 4.1 (2.1-6.9); NEUTROPHILS % 57.2 % (38.7-80.0); PLATELET COUNT 299 x10e3/uL (140-360); RED BLOOD COUNT 3.53 x10e6/uL (3.6-5.1); RED CELL DISTRIBUTION WIDTH 14.3 % (11.7-14.4)
[2018-07-16 04:55] LABS: INR 0.89; PROTHROMBIN TIME 12.9 seconds (11.9-14.5)
[2018-07-16 04:56] LABS: PARTIAL THROMBOPLASTIN TIME 35.4 seconds (23.8-35.5)
[2018-07-16 05:03] LABS: ALBUMIN 3.3 g/dL (3.5-5.0); ALBUMIN/GLOBULIN RATIO 1.1 (0.8-2.0); CHOL/HDL RATIO 2.2 (3.0-3.6); CREATININE, SERUM 4.9 mg/dL (0.57-1.11)
[2018-07-16 05:26] LABS: THYROID STIMULATING HORMONE 3.157 uIU/mL (0.350-4.940)
--- NOTE | 2018-07-16 07:06 | NUR ---
REPORT GIVEN TO ONCOMING NURSE,WALKING ROUNDS MADE.PT RESTING IN BED WITH NO S/S OF DISTRESS.
[2018-07-16] MEDS: INSULIN LISPRO 100 UNIT/1 ML 3ML VIAL SQ SCH ×5 (07:30→20:51)
[2018-07-16] MEDS: CLOPIDOGREL BISULFATE 75 MG TAB PO SCH (08:38)
[2018-07-16] MEDS: OYST-CAL-D 500MG TABLET PO SCH (08:38)
[2018-07-16] MEDS: GABAPENTIN 300 MG CAP PO SCH ×3 (08:38→20:32)
[2018-07-16] MEDS: DULOXETINE HCL 30 MG DELAYED RELEASE PO SCH (08:38)
[2018-07-16] MEDS: CEFEPIME 1GM/NS 0.9% 50 ML 50 ML IV SCH (08:38)
[2018-07-16] MEDS: LEVOTHYROXINE SODIUM 88 MCG TAB PO SCH (08:38)
[2018-07-16] MEDS: ALLOPURINOL 100 MG TAB PO SCH (08:38)
[2018-07-16] MEDS: COLLAGENASE OINTMENT 30 GM TUBE TP SCH (08:38)
[2018-07-16] MEDS: ASPIRIN 81 MG ENTERIC COATED PO SCH (08:38)
[2018-07-16] MEDS: SEVELAMER CARBONATE 800 MG TAB PO SCH ×3 (08:38→17:26)
[2018-07-16] MEDS: SIMVASTATIN 20 MG TAB PO SCH (20:32)
[2018-07-17] VITALS (8 sets, daily range): BP systolic 104–145; BP diastolic 52–72
--- NOTE | 2018-07-17 07:12 | NUR ---
REPORT GIVEN TO ONCOMING NURSE,WALKING ROUNDS MADE.PT RESTING IN BED WITH NO S/S OF DISTRESS.
--- NOTE | 2018-07-17 07:20 | NUR ---
pt resting in bed, no c/o pain or s/s distress. will continue to monitor.
[2018-07-17] MEDS: INSULIN LISPRO 100 UNIT/1 ML 3ML VIAL SQ SCH ×4 (07:30→21:08)
[2018-07-17] MEDS: SEVELAMER CARBONATE 800 MG TAB PO SCH ×3 (08:54→17:08)
[2018-07-17] MEDS: CEFEPIME 1GM/NS 0.9% 50 ML 50 ML IV SCH (08:54)
[2018-07-17] MEDS: CLOPIDOGREL BISULFATE 75 MG TAB PO SCH (08:54)
[2018-07-17] MEDS: OYST-CAL-D 500MG TABLET PO SCH (08:54)
[2018-07-17] MEDS: DULOXETINE HCL 30 MG DELAYED RELEASE PO SCH (08:54)
[2018-07-17] MEDS: COLLAGENASE OINTMENT 30 GM TUBE TP SCH (08:54)
[2018-07-17] MEDS: LEVOTHYROXINE SODIUM 88 MCG TAB PO SCH (08:54)
[2018-07-17] MEDS: ALLOPURINOL 100 MG TAB PO SCH (08:54)
[2018-07-17] MEDS: ASPIRIN 81 MG ENTERIC COATED PO SCH (08:54)
[2018-07-17] MEDS: GABAPENTIN 300 MG CAP PO SCH ×3 (08:54→21:08)
[2018-07-17] MEDS: SIMVASTATIN 20 MG TAB PO SCH (21:08)
[2018-07-18] VITALS (7 sets, daily range): BP systolic 95–153; BP diastolic 51–78
[2018-07-18] MEDS ORDERED: SODIUM CHLORIDE 0.9% 1000ML 2,000 ML ONE (06:17)
--- NOTE | 2018-07-18 07:20 | NUR ---
REPORT GIVEN TO ONCOMING NURSE,WALKING ROUNDS MADE,PT RESTING IN BED WITH NO S/S OF DISTRESS.
[2018-07-18] MEDS: INSULIN LISPRO 100 UNIT/1 ML 3ML VIAL SQ SCH ×4 (07:30→21:00)
[2018-07-18] MEDS: SEVELAMER CARBONATE 800 MG TAB PO SCH ×3 (08:48→17:14)
[2018-07-18] MEDS: GABAPENTIN 300 MG CAP PO SCH ×3 (08:48→22:03)
[2018-07-18] MEDS: LEVOTHYROXINE SODIUM 88 MCG TAB PO SCH (08:48)
[2018-07-18] MEDS: DULOXETINE HCL 30 MG DELAYED RELEASE PO SCH (08:48)
[2018-07-18] MEDS: CLOPIDOGREL BISULFATE 75 MG TAB PO SCH (08:48)
[2018-07-18] MEDS: ASPIRIN 81 MG ENTERIC COATED PO SCH (08:48)
[2018-07-18] MEDS: OYST-CAL-D 500MG TABLET PO SCH (08:48)
[2018-07-18] MEDS: ALLOPURINOL 100 MG TAB PO SCH (08:48)
--- NOTE | 2018-07-18 08:53 | Progress Note ---
DATE: July 18, 2018 Ms. Heard is a 57-year-old female with a history of diabetes, end-stage renal disease, on hemodialysis, hypertension, hyperlipidemia, partial amputation of the right foot, who was sent to the hospital by Dr. Anna with left lower extremity cellulitis and an ulcer. She was started on wound care and IV antibiotics. Arterial Doppler showed severe peripheral vascular disease of the left lower extremity. The patient was seen by Dr. Light. She had a CTA of the lower extremities done. PHYSICAL EXAMINATION GENERAL: Today, she is awake and alert. VITALS: Temperature is 96.1, blood pressure 147/78. HEART: Regular rate. LUNGS: Clear to auscultation. ABDOMEN: Distended and soft. EXTREMITIES: The right leg is okay, but she has a partial amputation of the foot. On the left lower extremity, she has an ulcer on the top of the foot and some changes in the color of the toes. The arterial Doppler shows severe peripheral vascular disease of the left lower extremity. MRI was negative for osteomyelitis. CTA showed severe atherosclerosis disease involving the bilateral distal superficial femoral arteries, popliteal arteries and distal runoff. ASSESSMENT AND PLAN 1. Left lower extremity cellulitis. 2. Left foot ulcer with negative MRI. 3. Diabetes, type 2 with end-stage renal disease. 4. Diabetes, type 2 with left foot ulcer. 5. End-stage renal disease. 6. Dependence on hemodialysis. 7. Right foot partial amputation. 8. Severe peripheral vascular disease of the left lower extremity. 9. Hypertension. 10. Hyperlipidemia. PLAN: At the present time, is to continue wound care. Continue IV antibiotics. Continue ADA diet. Sliding scale with insulin. The patient is high risk for any peripheral angiogram and intervention. We are going to wait for Dr. Light to discuss options with the patient. Continue aspirin and Plavix. All of this was discussed with the patient. All questions were answered to satisfaction. Job#: [id number] KIRSS
--- NOTE | 2018-07-18 11:43 | Progress Note ---
DATE: July 18, 2018 Seen on dialysis, tolerating procedure. OBJECTIVE VITALS: Temperature 96.1, pulse 70, blood pressure 147/78. CHEST: Clear. EXTREMITIES: Trace edema. Deformity of the ankle. Right foot in bandage. Left foot with eschar. LABS: Hemoglobin is 11.5. Last potassium was 4.0. Last albumin was 3.3. ASSESSMENT 1. End-stage renal disease. 2. Diabetic nephropathy. 3. Some fluid overload. 4. Hypertension, reasonable. 5. Hyperphosphatemia on binders. PLAN: Hemodialysis today, 4-hour run, F160 filter, blood flow rate 400 mL per minute, dialysate flow rate 800 mL per minute, 3-potassium bath. Try to remove 3 to 4 liters of fluid on dialysis. Continue the phosphorus binders. Hemoglobin is reasonable. Job#: [id number]
[2018-07-18] MEDS: COLLAGENASE OINTMENT 30 GM TUBE TP SCH (14:48)
[2018-07-18] MEDS: CEFEPIME 1GM/NS 0.9% 50 ML 50 ML IV SCH (14:48)
[2018-07-18] MEDS: VANCOMYCIN 1GM/NS 250 ML 250 ML IV SCH (17:14)
--- NOTE | 2018-07-18 19:26 | NUR ---
Patient received lying in bed. AAO x 3. No complaints of pain. No signs of respiratory distress. Bed locked and in lowest position. Bed rails up x 2. Patient instructed to call for assistance when needed. Call light within reach.
[2018-07-18] MEDS: SIMVASTATIN 20 MG TAB PO SCH (22:03)
--- NOTE | 2018-07-18 22:15 | NUR ---
Patient informed about recommended surgical procedure: Peripheral angiogram with possible intervention. Patient instructed about NPO status after midnight. Patient verbalized understanding. Patient voluntarily signed "Disclosure and Consent" form.
[2018-07-19] VITALS (7 sets, daily range): BP systolic 111–176; BP diastolic 51–80
[2018-07-19] MEDS ORDERED: HEPARIN SOD/SOD CHLORIDE 2,000 ML ONE (06:52)
[2018-07-19] MEDS ORDERED: LIDOCAINE HCL 1% LOCAL INJ 20 ML VIAL ONE (06:53)
[2018-07-19] MEDS ORDERED: IOPAMIDOL 300MG/ML 100 ML INFUS..BTL IV ONE ×3 (06:53→09:05)
[2018-07-19] MEDS: INSULIN LISPRO 100 UNIT/1 ML 3ML VIAL SQ SCH ×3 (07:30→17:23)
[2018-07-19] MEDS ORDERED: MIDAZOLAM HCL 2 MG/2 ML VIAL ONE ×2 (07:42→08:06)
[2018-07-19] MEDS ORDERED: SODIUM CHLORIDE 0.9% 1000ML 1,000 ML ONE ×2 (07:43→08:21)
[2018-07-19] MEDS ORDERED: FENTANYL CITRATE/PF 100MCG/2 ML INJ ONE (07:43)
[2018-07-19] MEDS: SEVELAMER CARBONATE 800 MG TAB PO SCH ×3 (08:00→17:22)
[2018-07-19] MEDS ORDERED: VERAPAMIL HCL 2.5 MG/ML 2 ML VIAL ONE (08:21)
[2018-07-19] MEDS ORDERED: HEPARIN SOD (PORCINE) 1000 UNIT/ML 30ML ONE (08:21)
[2018-07-19] MEDS ORDERED: NITROGLYCERIN/D5W 200 MCG/ML 250 ML ONE (08:21)
[2018-07-19] MEDS: ASPIRIN 81 MG ENTERIC COATED PO SCH (09:00)
[2018-07-19] MEDS: CLOPIDOGREL BISULFATE 75 MG TAB PO SCH (09:00)
[2018-07-19] MEDS ORDERED: CLOPIDOGREL BISULFATE 75 MG TAB ONE (09:20)
--- NOTE | 2018-07-19 09:44 | Discharge Summary ---
Ms. Heard is a 57-year-old female with a history of diabetes, end-stage renal disease, on hemodialysis, hypertension, hyperlipidemia, partial amputation of the right foot. Sent to the hospital by Dr. Anna with left lower extremity cellulitis and an ulcer. She was started on wound care and IV antibiotics. Arterial Doppler showed severe peripheral vascular disease of the lower extremities. So, the patient went for angiogram today. Depending on the findings, probably she will get a stent. PHYSICAL EXAMINATION GENERAL: She is awake and alert. VITAL SIGNS: Temperature is 96.5, blood pressure 134/60. HEART: Regular rate. LUNGS: Clear to auscultation. ABDOMEN: Soft. BLOOD WORK: Potassium 4, creatinine 4.9, glucose 124. White count 7.1, hemoglobin 11.5, hematocrit 34.9. The CTA of the lower extremity shows severe arteriosclerosis disease involving the bilateral distal superficial femoral arteries, popliteal artery and distal runoff. The MRI was negative for osteomyelitis. DISCHARGE DIAGNOSES 1. Left lower extremity cellulitis. 2. Left foot ulcer with negative MRI for osteomyelitis. 3. Diabetes, type 2 with end-stage renal disease. 4. Diabetes, type 2 with left foot ulcer. 5. End-stage renal disease. 6. Dependence on hemodialysis. 7. Right foot portion amputation. 8. Severe peripheral vascular disease of the lower extremity, for angiogram today. 9. Hypertension. 10. Hyperlipidemia. PLAN: At the present time, is the patient is going to go for angiogram. Depending on the results of the angiogram and if Dr. Light is okay with her going home, she may go home. If that happens if she gets cleared by tank tester, she will be switched to p.o. antibiotics and continue her home medications. Patient is on aspirin and Plavix. She needs followup with me in 1 week. All this was discussed with the nurse. Please see home medication reconciliation list. Job#: [id number] KRISS
[2018-07-19] MEDS: ALLOPURINOL 100 MG TAB PO SCH (12:25)
[2018-07-19] MEDS: DULOXETINE HCL 30 MG DELAYED RELEASE PO SCH (12:25)
[2018-07-19] MEDS: LEVOTHYROXINE SODIUM 88 MCG TAB PO SCH (12:25)
[2018-07-19] MEDS: CEFEPIME 1GM/NS 0.9% 50 ML 50 ML IV SCH (12:25)
[2018-07-19] MEDS: OYST-CAL-D 500MG TABLET PO SCH (12:25)
[2018-07-19] MEDS: GABAPENTIN 300 MG CAP PO SCH ×2 (12:25→15:27)
--- NOTE | 2018-07-19 14:59 | NUR ---
Nutrition Screen Note RD Recommendation for Physician: - Continue renal diabetic diet as ordered Plan of Care: RD following, monitoring for tolerance and adequacy Nutrition reason for involvement: Follow up Primary Diagnose(s): 1. Left lower extremity cellulitis. 2. Left foot ulcer concerning for osteomyelitis in a patient with patient with diabetes type 2 with foot ulcer. PMH: Diabetes, morbid obesity, end-stage renal disease on hemodialysis, diabetic foot complications, diabetic nephropathy. Ht: 64in Wt: 269.06lb BMI: 46.2kg/m2 IBW: 120lb RD Assessment: 07/19 Chart reviewed. Pt had heart cath this AM with intervention. Visited pt in the room. Pt reports good appetite with 75-100% meal intake. Pt complains of some runny stool today, most likely due to abx. No other GI complains noted. No chewing or swallowing issue. Current diet is appropriate. Will cont to monitor. Please consult as needed. (07/14) Chart reviewed. Labs and meds reviewed. 57yo F, who is admitted for left foot cellulitis. HbA1c was at 6%. Visited pt in room, who denied significant wt loss, denied decrease in appetite [employer]. Pt denied chewing/swallowing problems and nausea/vomiting. RN recorded 75-100% meal intake since admission. LBM 07/14. Will cont to monitor. Please consult as needed. Current Diet: renal diabetic diet Malnutrition Evaluation (07/14/2018) The patient does not meet criteria for a specified degree of malnutrition at this time. Will re-evaluate at follow-up as appropriate. Diet Education Needs Assessment: Diet education not indicated. followed by RD at [facility] Level: low Signed: Stefania Baez MS, RD, LD
--- NOTE | 2018-07-19 15:07 | Operative Report ---
DATE OF PROCEDURE: July 19, 2018 PERIPHERAL ANGIOGRAM REVASCULARIZATION OPERATIONS PERFORMED 1. Ultrasound-guided access through the right common femoral artery. 2. Abdominal aortogram with bilateral lower extremity runoff. 3. Third-order angiography of the left lower extremity. 4. Contralateral third-order angiography of the left lower extremity with catheter placement in the left popliteal artery. 5. [employer] atherectomy of the distal left femoral and popliteal arteries. 6. Lutonix drug-eluting balloon angioplasty of the left superficial femoral artery. 7. Lutonix drug-eluting balloon angioplasty of the left popliteal artery. 8. Angio-Seal closure of the right common femoral arteriotomy. 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 Patient has advanced PAD with findings compatible with critical limb ischemia. DESCRIPTION OF PROCEDURE: After risks, benefits, pros and cons were extensively explained to the patient with higher risk in light of her underlying comorbidities and morbid obesity, patient agreed to proceed. She was brought to the cardiac catheterization laboratory where the right groin was prepped and draped in the usual sterile fashion. Utilizing ultrasound guidance, access to the right common femoral artery was obtained and a short 5-Beninese femoral sheath was placed into the right common femoral artery. We initially went up with a 5-Beninese Omni Flush catheter placed into the abdominal aorta and utilizing a hand injection and digital subtraction angiography, abdominal aortogram with bilateral iliofemoral angiography was performed. At that point in time, we took a 0.035 Terumo Advantage Glidewire, crossed into the contralateral left common femoral artery, and from the catheter there we performed a left lower extremity runoff. This revealed critical distal left SFA popliteal artery disease with heavy calcification as well as notable severe infrapopliteal disease. At that point in time, we decided to proceed with intervention. We upsized our access from a 5-Beninese short sheath to a 6-Beninese Destination sheath which was placed into the contralateral left common femoral artery. Utilizing a 0.035 Seeker wire as well as the Acrintaumo Advantage Glidewire, we were able to successfully cross into the left popliteal artery past all the severe stenoses. The support catheter was placed into the left popliteal artery, and left lower extremity runoff was performed. Of note, patient was given heparin for systemic anticoagulation. Due to the heavy boulders of calcium in the distal left SFA and popliteal artery, we decided to proceed with adjunctive CSI atherectomy. We took a 0.014 Viper Glidewire and placed that into the left peroneal artery. We took a CSI Diamondback atherectomy 1.5-mm Solid [place] and performed a CSI atherectomy of the distal left SFA and proximal left popliteal artery with six total runs, two at lowest speed, two at medium speed and two on high speed. Afterwards we predilated the lesion with an Ultraverse 4.0 x 100-mm balloon up to 8 atmospheres of pressure. We then proceeded with further postdilatation with a Lutonix 5.0 x 100-mm drug-eluting balloon to the distal left SFA, deployed that up to 8 atmospheres of pressure for a three-minute inflation. We then took a Lutonix 4.0 x 100-mm balloon, overlapped that, treating almost the entire length of the left popliteal artery up to 8 atmospheres of pressure. Final angiography revealed less than 20% residual stenosis, which is an improvement from the 90% to 95% distal left SFA, and 70% left popliteal artery stenosis and normal flow. There appears to be two-vessel runoff to the foot in the form of the left anterior tibial artery and left peroneal artery which gives a tibial calcaneal branch to the left posterior tibial artery. The mid left posterior tibial artery is occluded with flow reconstituted at the ankle level. At the conclusion of the case, the Destination sheath was pulled to the ipsilateral right common iliac artery and, utilizing edenilson angiography and digital subtraction angiography, right lower extremity runoff was performed. COMPLICATIONS: None. ESTIMATED BLOOD LOSS: Minimal. FINDINGS 1. The lower abdominal aorta is patent. It gives rise to bilateral common and external iliac arteries which are tortuous with just mild diffuse disease. 2. The bilateral common femoral arteries have just mild diffuse disease. 3. The right SFA has 40% proximal stenosis at the mid to distal SFA. At the adductor canal region, the right SFA is with heavily calcified disease with 99% stenosis and appears subtotaled at that point. The right popliteal artery is diffusely heavily calcified with disease, and visualization past that point is abnormal. We can see the outline of all infrapopliteal vessels due to the boulders of calcium located in these vessels. 4. The left SFA has a 40% proximal stenosis. At the adductor canal there is 90% to 95% complex calcified stenosis there, and at the left popliteal artery there is a 70% stenosis throughout. 5. The left anterior tibial artery has 60% proximal stenosis. 6. The left tibioperoneal trunk has diffuse 50% to 60% to 70% stenosis. 7. The left peroneal artery has 60% prox-mid stenosis. 8. The left posterior tibial artery is occluded in its midsegment. Flow is reconstituted at the ankle level via a tibiocalcaneal branch from the peroneal artery. There appears to be two-vessel runoff to the foot. INTERVENTION SUMMARY 1. Successful treatment of the distal, heavily calcified left SFA which had 90% to 95% stenosis utilizing CSI atherectomy followed by Lutonix drug-eluting balloon angioplasty resulting in less than 20% residual stenosis, excellent flow and no complications. 2. Successful treatment of the left popliteal artery which had 70% diffuse stenosis with CSI atherectomy followed by Lutonix drug-eluting balloon angioplasty resulting in less than 20% residual stenosis, normal flow and no complications. PLAN/RECOMMENDATIONS 1. Aspirin and Plavix therapy. 2. Local wound care. 3. Aggressive risk-factor modification medical therapy. 4. Will consider staged revascularization of the right lower extremity, which has visually worse disease than the left. Job#: [id number] EV
[2018-07-19] MEDS: COLLAGENASE OINTMENT 30 GM TUBE TP SCH (15:34)
[2018-07-19] MEDS ORDERED: DOXYCYCLINE HY100 MG PO (17:29)
[2018-07-19] MEDS ORDERED: CIPRO500 MG PO (17:29)
[2018-07-19] MEDS ORDERED: HYDROCODONE/APAP 5MG-325MG TAB PO PRN (17:30)
[2018-07-19] MEDS ORDERED: ACETAMINOPHEN 325 MG TAB PO PRN ×2 (17:30)
--- NOTE | 2018-07-19 17:32 | Progress Note ---
DATE: July 19, 2018 PODIATRY PROGRESS NOTE SUBJECTIVE: Patient had angiogram today with what appears to be atherectomy to the left lower extremity, found to have some significant narrowing to the right lower extremity, needs to have that scheduled per Interventional Cardiology on an outpatient basis. Regarding the left lower extremity, she feels no significant difference with regards to the extremity. OBJECTIVE VITAL SIGNS: Stable. She is afebrile. GENERAL: She does not complain of groin pain. AO x3. NAD. HEENT: Normocephalic, atraumatic, anicteric. ABDOMEN: Soft, nontender, nondistended. RESPIRATORY: Symmetrical expansion. No distress. PSYCHIATRIC: Normal affect. EXTREMITIES: There is indeed significant amount of cyanotic changes with erythema associated to the left forefoot still. She has three distinct ischemic-like lesions, one dorsum of the midfoot area, one associated to the second digit and one associated to the fifth digit. The second and fifth digits are small lesions. Right foot diabetic ulceration stable on the plantar lateral aspect of the TMA stump. ASSESSMENT 1. Peripheral arterial disease with cellulitis left foot. 2. Ischemia to the left lower extremity. 3. Diabetic ulceration right foot. 4. Obesity. 5. Diabetic peripheral neuropathy. 6. End-stage renal disease on hemodialysis. PLAN: At this point seems like all potential interventions have been performed. I did discuss at length the possibility of outpatient treatment including hyperbaric oxygen treatment, but unfortunately her schedule does not permit. At this point recommend proceeding with local wound care and offloading right lower extremity and then continue to monitor left foot and ankle. It seems like this issue may flare up, but this will be monitored on an outpatient basis and further recommendations will continue to follow. I would like to thank Dr. iLght, Dr. Mcdonald and Dr. Hairston for their aid in the management of Mrs. Heard. Job#: [id number] EV
== END 2018-07-19 18:08 | disposition home or self-care (01) | DRG 270 ==
LOC: OBSVTOIN 19:27 → MED/SURG2 19:27
PROVIDERS: ADMIT Internal Medicine; ATTEND Internal Medicine
PROC: 5A1D70Z Performance of Urinary Filtration, Intermittent, Less than 6 Hours Per Day (ICD-10-PCS; 2018-07-13)
PROC: 5A1D70Z Performance of Urinary Filtration, Intermittent, Less than 6 Hours Per Day (ICD-10-PCS; 2018-07-15)
PROC: 5A1D70Z Performance of Urinary Filtration, Intermittent, Less than 6 Hours Per Day (ICD-10-PCS; 2018-07-18)
PROC: 04CL3ZZ Extirpation of Matter from Left Femoral Artery, Percutaneous Approach (ICD-10-PCS; principal; 2018-07-19)
PROC: 04CN3ZZ Extirpation of Matter from Left Popliteal Artery, Percutaneous Approach (ICD-10-PCS; 2018-07-19)
PROC: 047L3Z1 Dilation of Left Femoral Artery using Drug-Coated Balloon, Percutaneous Approach (ICD-10-PCS; 2018-07-19)
PROC: 047N3Z1 Dilation of Left Popliteal Artery using Drug-Coated Balloon, Percutaneous Approach (ICD-10-PCS; 2018-07-19)
PROC: B41D1ZZ Fluoroscopy of Aorta and Bilateral Lower Extremity Arteries using Low Osmolar Contrast (ICD-10-PCS; 2018-07-19)
DX: E11.52 Type 2 diabetes mellitus with diabetic peripheral angiopathy with gangrene (principal); N18.6 End stage renal disease; I70.263 Atherosclerosis of native arteries of extremities with gangrene, bilateral legs; I12.0 Hypertensive chronic kidney disease with stage 5 chronic kidney disease or end stage renal disease; N25.81 Secondary hyperparathyroidism of renal origin; L03.116 Cellulitis of left lower limb; L97.429 Non-pressure chronic ulcer of left heel and midfoot with unspecified severity; L97.419 Non-pressure chronic ulcer of right heel and midfoot with unspecified severity; Z68.42 Body mass index [BMI] 45.0-49.9, adult; E11.22 Type 2 diabetes mellitus with diabetic chronic kidney disease; Z99.2 Dependence on renal dialysis; E78.5 Hyperlipidemia, unspecified; Z89.431 Acquired absence of right foot; E11.621 Type 2 diabetes mellitus with foot ulcer; D64.9 Anemia, unspecified; M10.9 Gout, unspecified; E11.319 Type 2 diabetes mellitus with unspecified diabetic retinopathy without macular edema; Z79.4 Long term (current) use of insulin; E83.39 Other disorders of phosphorus metabolism; R53.81 Other malaise; E66.01 Morbid (severe) obesity due to excess calories
CPT/HCPCS: 36247; 36415; 37186; 37225; 75635; 75716; 80048; 80053; 80061; 82270; 82948; 83036; 83880; 84100; 84443; 85025; 85347; 85610; 85730; 86706; 87040; 87340; 93926; C1725; J0692; J1644; J2001; J2250; J3370; J7030; J7050; Q9967

== ENCOUNTER 2019-08-14 13:40 | Outpatient (RCR) | payer MEDICARE ==
[~2019-08-14 13:40] MED LIST changes: +CIPRO500 MG PO; +DOXYCYCLINE HY100 MG PO; +LIDOCAINE/PRILOCAINE 2.5-2.5% KIT ONE; +MINERAL OIL/PETROLAT/GLYCERI 6OZ BTL ONE; +SIMVASTATIN10 MG PO
== END 2019-08-19 | disposition still patient (30) ==
LOC: WCC 13:40
PROVIDERS: ATTEND Podiatrist Foot & Ankle Surgery
DX: E11.621 Type 2 diabetes mellitus with foot ulcer (principal); L97.411 Non-pressure chronic ulcer of right heel and midfoot limited to breakdown of skin; I73.89 Other specified peripheral vascular diseases; I87.9 Disorder of vein, unspecified; M10.9 Gout, unspecified; I12.0 Hypertensive chronic kidney disease with stage 5 chronic kidney disease or end stage renal disease; N18.9 Chronic kidney disease, unspecified; N18.6 End stage renal disease; Z99.2 Dependence on renal dialysis; Z79.4 Long term (current) use of insulin; I10 Essential (primary) hypertension; E78.5 Hyperlipidemia, unspecified; D64.9 Anemia, unspecified; E66.01 Morbid (severe) obesity due to excess calories; Z68.42 Body mass index [BMI] 45.0-49.9, adult; Z89.431 Acquired absence of right foot
CPT/HCPCS: 11042 ×2; 15275; 29445 ×3; 36415 ×2; 82948 ×2; Q4186

== ENCOUNTER 2019-09-11 13:49 | Outpatient (RCR) | payer MEDICARE ==
[~2019-09-11 13:49] MED LIST changes: -LIDOCAINE/PRILOCAINE 2.5-2.5% KIT ONE; -MINERAL OIL/PETROLAT/GLYCERI 6OZ BTL ONE
== END 2019-09-19 ==
LOC: WCC 13:49
PROVIDERS: ATTEND Podiatrist Foot & Ankle Surgery
DX: E11.621 Type 2 diabetes mellitus with foot ulcer (principal); L97.411 Non-pressure chronic ulcer of right heel and midfoot limited to breakdown of skin; I12.0 Hypertensive chronic kidney disease with stage 5 chronic kidney disease or end stage renal disease; I87.9 Disorder of vein, unspecified; M10.9 Gout, unspecified; N18.6 End stage renal disease; N18.9 Chronic kidney disease, unspecified; Z99.2 Dependence on renal dialysis; I10 Essential (primary) hypertension; E78.5 Hyperlipidemia, unspecified; D64.9 Anemia, unspecified; Z89.431 Acquired absence of right foot; E66.01 Morbid (severe) obesity due to excess calories
CPT/HCPCS: 36415; 82948

== ENCOUNTER 2019-10-16 14:25 | Outpatient (RCR) | payer MEDICARE ==
[~2019-10-16 14:25] MED LIST changes: +LIDOCAINE/PRILOCAINE 2.5-2.5% KIT ONE
[2019-10-16] MEDS ORDERED: LIDOCAINE/PRILOCAINE 2.5-2.5% KIT ONE (19:35)
== END 2019-10-19 ==
LOC: WCC 14:25
PROVIDERS: ATTEND Podiatrist Foot & Ankle Surgery
DX: E11.621 Type 2 diabetes mellitus with foot ulcer (principal); L97.411 Non-pressure chronic ulcer of right heel and midfoot limited to breakdown of skin; I87.9 Disorder of vein, unspecified; I73.89 Other specified peripheral vascular diseases; M10.9 Gout, unspecified; I12.0 Hypertensive chronic kidney disease with stage 5 chronic kidney disease or end stage renal disease; Z89.431 Acquired absence of right foot; N18.9 Chronic kidney disease, unspecified; N18.6 End stage renal disease; Z99.2 Dependence on renal dialysis; Z79.4 Long term (current) use of insulin; I10 Essential (primary) hypertension; E78.5 Hyperlipidemia, unspecified; D64.9 Anemia, unspecified; E66.01 Morbid (severe) obesity due to excess calories; Z68.42 Body mass index [BMI] 45.0-49.9, adult
CPT/HCPCS: 36415; 82948; 87071; 87075; 87186; 87205

== ENCOUNTER 2019-10-30 13:46 | Outpatient (RCR) | payer MEDICARE ==
[~2019-10-30 13:46] MED LIST changes: -LIDOCAINE/PRILOCAINE 2.5-2.5% KIT ONE
[2019-10-30] MEDS ORDERED: LIDOCAINE VISC 2% SOLN 15 ML UDC ONE (19:14)
== END 2019-11-19 ==
LOC: WCC 13:46
PROVIDERS: ATTEND Podiatrist Foot & Ankle Surgery
DX: E11.621 Type 2 diabetes mellitus with foot ulcer (principal); L97.411 Non-pressure chronic ulcer of right heel and midfoot limited to breakdown of skin; I87.9 Disorder of vein, unspecified; M10.9 Gout, unspecified; I73.89 Other specified peripheral vascular diseases; Z89.431 Acquired absence of right foot; I12.0 Hypertensive chronic kidney disease with stage 5 chronic kidney disease or end stage renal disease; N18.6 End stage renal disease; N18.9 Chronic kidney disease, unspecified; Z99.2 Dependence on renal dialysis; Z79.4 Long term (current) use of insulin; I10 Essential (primary) hypertension; B96.4 Proteus (mirabilis) (morganii) as the cause of diseases classified elsewhere; B96.89 Other specified bacterial agents as the cause of diseases classified elsewhere; D64.9 Anemia, unspecified; E66.01 Morbid (severe) obesity due to excess calories; E78.5 Hyperlipidemia, unspecified; Z68.42 Body mass index [BMI] 45.0-49.9, adult
CPT/HCPCS: 36415; 82948

== ENCOUNTER 2019-11-27 13:43 | Outpatient (RCR) | payer MEDICARE ==
[~2019-11-27 13:43] MED LIST changes: +MINERAL OIL/PETROLAT/GLYCERI 6OZ BTL ONE
== END 2019-12-19 ==
LOC: WCC 13:43
PROVIDERS: ATTEND Podiatrist Foot & Ankle Surgery
DX: E11.621 Type 2 diabetes mellitus with foot ulcer (principal); L97.411 Non-pressure chronic ulcer of right heel and midfoot limited to breakdown of skin; I87.9 Disorder of vein, unspecified; I73.89 Other specified peripheral vascular diseases; M10.9 Gout, unspecified; N18.9 Chronic kidney disease, unspecified; N18.6 End stage renal disease; Z99.2 Dependence on renal dialysis; I12.0 Hypertensive chronic kidney disease with stage 5 chronic kidney disease or end stage renal disease; I10 Essential (primary) hypertension; E78.5 Hyperlipidemia, unspecified; B96.4 Proteus (mirabilis) (morganii) as the cause of diseases classified elsewhere; B96.89 Other specified bacterial agents as the cause of diseases classified elsewhere; D64.9 Anemia, unspecified; E66.01 Morbid (severe) obesity due to excess calories; Z68.42 Body mass index [BMI] 45.0-49.9, adult; Z79.4 Long term (current) use of insulin; Z89.431 Acquired absence of right foot

== ENCOUNTER 2020-01-08 12:55 | Outpatient (RCR) | payer MEDICARE ==
[~2020-01-08 12:55] MED LIST changes: +LIDOCAINE/PRILOCAINE 2.5-2.5% KIT ONE; -MINERAL OIL/PETROLAT/GLYCERI 6OZ BTL ONE
== END 2020-01-19 ==
LOC: WCC 12:55
PROVIDERS: ATTEND Podiatrist Foot & Ankle Surgery
DX: E11.621 Type 2 diabetes mellitus with foot ulcer (principal); L97.411 Non-pressure chronic ulcer of right heel and midfoot limited to breakdown of skin; I12.0 Hypertensive chronic kidney disease with stage 5 chronic kidney disease or end stage renal disease; I73.89 Other specified peripheral vascular diseases; I87.9 Disorder of vein, unspecified; M10.9 Gout, unspecified; N18.6 End stage renal disease; N18.9 Chronic kidney disease, unspecified; Z99.2 Dependence on renal dialysis; Z79.4 Long term (current) use of insulin; I10 Essential (primary) hypertension; B96.89 Other specified bacterial agents as the cause of diseases classified elsewhere; B96.4 Proteus (mirabilis) (morganii) as the cause of diseases classified elsewhere; D64.9 Anemia, unspecified; E78.5 Hyperlipidemia, unspecified; E66.01 Morbid (severe) obesity due to excess calories; Z68.42 Body mass index [BMI] 45.0-49.9, adult; Z89.431 Acquired absence of right foot
CPT/HCPCS: 36415; 82948

== ENCOUNTER 2020-02-08 13:24 | Outpatient (RCR) | payer MEDICARE ==
[~2020-02-08 13:24] MED LIST changes: -LIDOCAINE/PRILOCAINE 2.5-2.5% KIT ONE
[2020-02-16] MEDS ORDERED: RENAPLEX-D TAB1 EACH PO (15:51)
[2020-02-17] MEDS ORDERED: NOVOLOG100 UNIT/1 SC (08:35)
[2020-02-17] MEDS ORDERED: LEVEMIR100 UNIT/1 SQ (08:35)
== END 2020-02-19 ==
LOC: WCC 13:24
PROVIDERS: ATTEND Podiatrist Foot & Ankle Surgery
DX: E11.621 Type 2 diabetes mellitus with foot ulcer (principal); L97.411 Non-pressure chronic ulcer of right heel and midfoot limited to breakdown of skin; I12.0 Hypertensive chronic kidney disease with stage 5 chronic kidney disease or end stage renal disease; N18.6 End stage renal disease; N18.9 Chronic kidney disease, unspecified; Z79.4 Long term (current) use of insulin; Z99.2 Dependence on renal dialysis; I10 Essential (primary) hypertension; I87.9 Disorder of vein, unspecified; I73.89 Other specified peripheral vascular diseases; E78.5 Hyperlipidemia, unspecified; M10.9 Gout, unspecified; D64.9 Anemia, unspecified; Z89.431 Acquired absence of right foot; Z68.42 Body mass index [BMI] 45.0-49.9, adult; E66.01 Morbid (severe) obesity due to excess calories

== ENCOUNTER → 2020-02-20 | Day surgery (SDC) | payer MEDICARE, OTHER ==
[~2020-02-20] MED LIST changes: +BUPIVACAINE HCL 0.5% INJ 30 ML VIAL INJ ONE; +CEFAZOLIN SOD 1 GM/NS 50ML 100 ML IV ONE; +EPHEDRINE SULFATE INJ 50 MG/ML VIAL ONE; +FENTANYL CITRATE/PF 100MCG/2 ML INJ ONE; +GLYCOPYRROLATE INJ 0.2 MG/ML VIAL ONE; +LEVEMIR100 UNIT/1 SQ; +LIDOCAINE HCL 2% LOCAL INJ 5 ML SDV VIAL INJ ONE; +METOCLOPRAMIDE HCL 10 MG/2ML VIAL ONE; +NOVOLOG100 UNIT/1 SC; +ONDANSETRON HCL INJ 2MG/ML 2ML 2 MG/ML VIAL ONE; +PHENYLEPHRINE HCL 1% 10 MG/ML VIAL ONE; +PROPOFOL IV EMULSION 10 MG/ML 20 ML VIAL ONE; +RENAPLEX-D TAB1 EACH PO; +ROCURONIUM BROMIDE 10 MG/ML 5ML VIAL IV ONE; +SEVOFLURANE INHAL SOLN 250 ML PEN BTL ONE; +SODIUM CHLORIDE 0.9% 500ML 500 ML ONE; +SUGAMMADEX SODIUM 200 MG/2 ML VIAL IV ONE
[2020-02-20 07:28] LABS: BASOPHILS % 0.5 % (0.0-1.0); EOSINOPHILS # (AUTO) 0.3 (0.0-0.4); EOSINOPHILS % 3.3 % (0.0-6.0); HEMATOCRIT 36.4 % (34.2-44.1); HEMOGLOBIN 11.1 g/dL (12.0-16.0); LYMPHOCYTES # (AUTO) 1.4 (1.0-3.2); LYMPHOCYTES % 18.7 % (18.0-39.1); MEAN CORPUSCULAR HEMOGLOBIN 31.5 pg (28-32); MEAN CORPUSCULAR HGB CONC 30.5 g/dL (31-35); MEAN CORPUSCULAR VOLUME 103.4 fL (81-99); MONOCYTES # (AUTO) 0.6 (0.2-0.8); MONOCYTES % 7.9 % (4.4-11.3); NEUTROPHILS # (AUTO) 5.2 (2.1-6.9); NEUTROPHILS % 68.8 % (38.7-80.0); PLATELET COUNT 293 x10e3/uL (140-360); RED BLOOD COUNT 3.52 x10e6/uL (3.6-5.1); RED CELL DISTRIBUTION WIDTH 14.1 % (11.7-14.4)
[2020-02-20 07:56] LABS: CALCIUM 8.3 mg/dL (8.4-10.2); CREATININE, SERUM 6.68 mg/dL (0.57-1.11)
[2020-02-20 08:19] LABS: INR 0.95; PROTHROMBIN TIME 13.2 seconds (11.9-14.5)
[2020-02-20 11:10] VITALS: BP 130/59
--- NOTE | 2020-02-20 13:48 | Operative Report ---
DATE OF PROCEDURE: 02/20/2020 SURGEON: Mya Herman DPM PREOPERATIVE DIAGNOSES: 1. Diabetic foot ulcer, grade 3, right foot, chronic. 2. Diabetes with neuropathy and peripheral vascular disease. PROCEDURE: Excisional debridement to include fascia with application of graft. COMPLICATIONS: None. CONDITION: Stable. PROCEDURE IN DETAIL: Under mild sedation, the patient was brought to the operating room, placed on the operative table in supine position. Following IV sedation, anesthesia was obtained with general anesthetic. At this point, the right foot scrubbed, prepped, and draped in the usual aseptic manner, it was then lowered to the table. Attention was then directed to the plantar aspect of the right foot, where the ulcer measured 3 cm x 2 cm x 0.5 cm. Utilizing sharp debridement with a #15 blade, a bone rongeur, and a curette it was debrided down to clean viable tissue and including fascia. Once it was 100% viable tissue, the area was then flushed with copious irrigation and a pressure undercollar baster control sensitivities were taken of the deepest layer in the fascia. At this point, the wound was then filled with AmnioFill, it was then secured utilizing Adaptic and a stapler. Clean dressing was applied consisting of 4x4s, Kerlix, and an Sedrick bandage. The patient tolerated the procedure and anesthesia well without complications, was transported to recovery room with vital signs stable and vascular status unchanged. The patient will be discharged home when she meets criteria. She was given instructions to be strictly nonweightbearing and to follow up with me in [facility] and to call the office if any questions, concerns, or new problems arise. Mya Herman DPM ER/MODL /[id number]
== END | disposition home or self-care (01) ==
LOC: OR 06:38
PROVIDERS: ATTEND Podiatrist Foot & Ankle Surgery
DX: E11.621 Type 2 diabetes mellitus with foot ulcer (principal); E11.40 Type 2 diabetes mellitus with diabetic neuropathy, unspecified; E11.51 Type 2 diabetes mellitus with diabetic peripheral angiopathy without gangrene; E11.22 Type 2 diabetes mellitus with diabetic chronic kidney disease; N18.6 End stage renal disease; G47.33 Obstructive sleep apnea (adult) (pediatric); E78.5 Hyperlipidemia, unspecified; E66.01 Morbid (severe) obesity due to excess calories; Z01.810 Encounter for preprocedural cardiovascular examination; Z01.812 Encounter for preprocedural laboratory examination; Z11.59 Encounter for screening for other viral diseases; Z79.4 Long term (current) use of insulin
CPT/HCPCS: 11043; 36415; 80048; 82948; 85025; 85610; 85730; 87071; 87075; 87205; 93005; J0690; J2001; J2370; J2405; J2704; J2765; J3010; J7040; Q4100; U0002

== ENCOUNTER 2020-03-19 13:49 | Outpatient (RCR) | payer MEDICARE, OTHER ==
[~2020-03-19 13:49] MED LIST changes: -BUPIVACAINE HCL 0.5% INJ 30 ML VIAL INJ ONE; -CEFAZOLIN SOD 1 GM/NS 50ML 100 ML IV ONE; -EPHEDRINE SULFATE INJ 50 MG/ML VIAL ONE; -FENTANYL CITRATE/PF 100MCG/2 ML INJ ONE; -GLYCOPYRROLATE INJ 0.2 MG/ML VIAL ONE; -LIDOCAINE HCL 2% LOCAL INJ 5 ML SDV VIAL INJ ONE; -METOCLOPRAMIDE HCL 10 MG/2ML VIAL ONE; -ONDANSETRON HCL INJ 2MG/ML 2ML 2 MG/ML VIAL ONE; -PHENYLEPHRINE HCL 1% 10 MG/ML VIAL ONE; -PROPOFOL IV EMULSION 10 MG/ML 20 ML VIAL ONE; -ROCURONIUM BROMIDE 10 MG/ML 5ML VIAL IV ONE; -SEVOFLURANE INHAL SOLN 250 ML PEN BTL ONE; -SODIUM CHLORIDE 0.9% 500ML 500 ML ONE; -SUGAMMADEX SODIUM 200 MG/2 ML VIAL IV ONE
[2020-03-19] MEDS ORDERED: MINERAL OIL/PETROLAT/GLYCERI 2OZ CRM ONE (16:41)
== END 2020-03-20 ==
LOC: WCC 13:49
PROVIDERS: ATTEND Podiatrist Foot & Ankle Surgery
DX: E11.621 Type 2 diabetes mellitus with foot ulcer (principal); L97.411 Non-pressure chronic ulcer of right heel and midfoot limited to breakdown of skin; I73.89 Other specified peripheral vascular diseases; I87.9 Disorder of vein, unspecified; M10.9 Gout, unspecified; I12.0 Hypertensive chronic kidney disease with stage 5 chronic kidney disease or end stage renal disease; N18.6 End stage renal disease; N18.9 Chronic kidney disease, unspecified; I10 Essential (primary) hypertension; Z79.4 Long term (current) use of insulin; E78.5 Hyperlipidemia, unspecified; D64.9 Anemia, unspecified; E66.01 Morbid (severe) obesity due to excess calories; Z68.42 Body mass index [BMI] 45.0-49.9, adult; Z89.431 Acquired absence of right foot; Z99.2 Dependence on renal dialysis
CPT/HCPCS: 36415; 82948

== ENCOUNTER 2020-04-02 14:09 | Outpatient (RCR) | payer MEDICARE, OTHER ==
[2020-04-02] MEDS ORDERED: LIDOCAINE/PRILOCAINE 2.5-2.5% KIT ONE ×2 (16:53→16:57)
== END 2020-04-20 ==
LOC: WCC 14:09
PROVIDERS: ATTEND Podiatrist Foot & Ankle Surgery
DX: E11.621 Type 2 diabetes mellitus with foot ulcer (principal); L97.411 Non-pressure chronic ulcer of right heel and midfoot limited to breakdown of skin; I73.89 Other specified peripheral vascular diseases; I12.0 Hypertensive chronic kidney disease with stage 5 chronic kidney disease or end stage renal disease; I87.9 Disorder of vein, unspecified; M10.9 Gout, unspecified; N18.9 Chronic kidney disease, unspecified; N18.6 End stage renal disease; I10 Essential (primary) hypertension; Z99.2 Dependence on renal dialysis; D64.9 Anemia, unspecified; Z79.4 Long term (current) use of insulin; E78.5 Hyperlipidemia, unspecified; E66.01 Morbid (severe) obesity due to excess calories; Z68.42 Body mass index [BMI] 45.0-49.9, adult; Z89.431 Acquired absence of right foot

== ENCOUNTER 2020-05-14 15:33 | Outpatient (RCR) | payer MEDICARE | END 2020-05-20 | LOC: WCC 15:33 | PROVIDERS: ATTEND Podiatrist Foot & Ankle Surgery | DX: E11.621 Type 2 diabetes mellitus with foot ulcer (principal); L97.411 Non-pressure chronic ulcer of right heel and midfoot limited to breakdown of skin; I73.89 Other specified peripheral vascular diseases; M10.9 Gout, unspecified; I87.9 Disorder of vein, unspecified; I10 Essential (primary) hypertension; I12.0 Hypertensive chronic kidney disease with stage 5 chronic kidney disease or end stage renal disease; N18.6 End stage renal disease; N18.9 Chronic kidney disease, unspecified; Z99.2 Dependence on renal dialysis; Z79.4 Long term (current) use of insulin; Z89.431 Acquired absence of right foot; E78.5 Hyperlipidemia, unspecified; D64.9 Anemia, unspecified; E66.01 Morbid (severe) obesity due to excess calories; Z68.42 Body mass index [BMI] 45.0-49.9, adult | CPT/HCPCS: 36415; 82948; 87071; 87075; 87186; 87205 ==

== ENCOUNTER → 2020-05-21 | Outpatient (CLI) | payer MEDICARE | LOC: RAD 15:01 | PROVIDERS: ATTEND Podiatrist Foot & Ankle Surgery | DX: I87.9 Disorder of vein, unspecified (principal) | CPT/HCPCS: 93971 ==

== ENCOUNTER 2020-06-18 14:19 | Outpatient (RCR) | payer MEDICARE ==
[~2020-06-18 14:19] MED LIST changes: +LIDOCAINE/PRILOCAINE 2.5-2.5% KIT ONE
[2020-06-18 15:04] LABS: BASOPHILS % 0.4 % (0.0-1.0); EOSINOPHILS # (AUTO) 0.1 (0.0-0.4); EOSINOPHILS % 1.4 % (0.0-6.0); HEMATOCRIT 33.5 % (34.2-44.1); HEMOGLOBIN 10.2 g/dL (12.0-16.0); LYMPHOCYTES # (AUTO) 1.4 (1.0-3.2); LYMPHOCYTES % 16.5 % (18.0-39.1); MEAN CORPUSCULAR HEMOGLOBIN 32.2 pg (28-32); MEAN CORPUSCULAR HGB CONC 30.4 g/dL (31-35); MEAN CORPUSCULAR VOLUME 105.7 fL (81-99); MONOCYTES # (AUTO) 0.5 (0.2-0.8); NEUTROPHILS # (AUTO) 6.2 (2.1-6.9); NEUTROPHILS % 74.5 % (38.7-80.0); PLATELET COUNT 380 x10e3/uL (140-360); RED BLOOD COUNT 3.17 x10e6/uL (3.6-5.1); RED CELL DISTRIBUTION WIDTH 14.8 % (11.7-14.4)
== END 2020-06-20 ==
LOC: WCC 14:19
PROVIDERS: ATTEND Podiatrist Foot & Ankle Surgery
DX: E11.621 Type 2 diabetes mellitus with foot ulcer (principal); L97.411 Non-pressure chronic ulcer of right heel and midfoot limited to breakdown of skin; I73.89 Other specified peripheral vascular diseases; I87.9 Disorder of vein, unspecified; I12.0 Hypertensive chronic kidney disease with stage 5 chronic kidney disease or end stage renal disease; N18.6 End stage renal disease; N18.9 Chronic kidney disease, unspecified; Z99.2 Dependence on renal dialysis; Z79.4 Long term (current) use of insulin; I10 Essential (primary) hypertension; M10.9 Gout, unspecified; B96.89 Other specified bacterial agents as the cause of diseases classified elsewhere; E78.5 Hyperlipidemia, unspecified; D64.9 Anemia, unspecified; E66.01 Morbid (severe) obesity due to excess calories; Z68.42 Body mass index [BMI] 45.0-49.9, adult; Z89.431 Acquired absence of right foot
CPT/HCPCS: 36415; 82948; 83036; 84134; 85025; 85651; 86140; 87071; 87075; 87186; 87205